=== PATIENT | female | born 1965 | race Caucasian/White ===

== ENCOUNTER 2019-02-21 07:04 | Emergency (ER) | payer MEDICARE, MEDICAID ==
[~2019-02-21] VITALS: Ht 160 cm; Wt 66.2 kg
[2019-02-21 07:24] VITALS: BP 128/73
[2019-02-21] MEDS ORDERED: ACETAMINOPHEN 325 MG TAB PO ONE (08:30)
== END 2019-02-21 08:40 | disposition home or self-care (01) ==
LOC: ER 07:04
DX: S00.83XA Contusion of other part of head, initial encounter (principal); S63.502A Unspecified sprain of left wrist, initial encounter; S00.31XA Abrasion of nose, initial encounter; F17.210 Nicotine dependence, cigarettes, uncomplicated; W01.198A Fall on same level from slipping, tripping and stumbling with subsequent striking against other object, initial encounter; Y93.89 Activity, other specified; Y92.89 Other specified places as the place of occurrence of the external cause; Y99.8 Other external cause status
CPT/HCPCS: 70450; 73110

== ENCOUNTER 2021-11-04 09:13 | Emergency (ER) | payer MEDICARE, MEDICAID ==
[~2021-11-04] VITALS: Ht 160 cm; Wt 70.3 kg
[2021-11-04 09:55] VITALS: BP 136/71
== END 2021-11-04 10:24 | disposition home or self-care (01) ==
LOC: ER 09:13
DX: M77.8 Other enthesopathies, not elsewhere classified (principal); I10 Essential (primary) hypertension; E11.9 Type 2 diabetes mellitus without complications; F17.210 Nicotine dependence, cigarettes, uncomplicated; Z90.49 Acquired absence of other specified parts of digestive tract
CPT/HCPCS: 73110

== ENCOUNTER 2025-04-24 23:15 | Inpatient (IN) | payer MEDICARE, MEDICAID ==
[~2025-04-24] VITALS: Ht 160 cm; Wt 76.8 kg
[2025-04-25] VITALS (7 sets, daily range): BP systolic 100–138; BP diastolic 51–70; PULSE 69–96; RESP 16–18; TEMP 98.1–98.3; O2SAT 91–98
--- NOTE | 2025-04-25 00:44 | DVH ---
INDICATION: right side mid back pain TECHNIQUE: 2 views of the thoracic spine were obtained. COMPARISON: None FINDINGS: Alignment is maintained. Vertebral body heights are preserved. No fractures. Relatively mild degenerative disc disease throughout the mid thoracic spine. IMPRESSION: No acute osseous abnormality.
[2025-04-25] MEDS: MORPHINE SULFATE 4 MG/ML SYR/VIAL IM ONE (02:01)
[2025-04-25] MEDS: KETOROLAC TROMETH 60MG/2ML VIAL IM ONE (02:48)
[2025-04-25 03:20] LABS: Hematocrit 40.7 % (36.0-46.0); Hemoglobin 13.8 g/dL (12.2-16.2); Mean Corpuscular Hemoglobin 31.6 pg (28.0-32.0); Mean Corpuscular Volume 93.3 fL (80.0-100.0); Nucleated Red Blood Cells % 0.0 %
[2025-04-25 03:24] LABS: Alanine Aminotransferase 31 U/L (7-40); Albumin 4.3 g/dL (3.2-4.8); Alkaline Phosphatase 114 U/L (46-116); Anion Gap 7 (5-15); BUN/Creatinine Ratio 13.7 (10.0-20.0); Blood Urea Nitrogen 13 mg/dL (9-23); Calcium 9.2 mg/dL (8.7-10.4); Carbon Dioxide 26 mmol/L (20-31); Potassium 4.4 mmol/L (3.5-5.1); Sodium 143 mmol/L (136-145); Total Protein 7.0 g/dL (5.7-8.2)
[2025-04-25 03:25] LABS: Bilirubin, Total 0.6 mg/dL (0.2-1.0)
[2025-04-25 03:27] LABS: Chloride 110 mmol/L (98-107); Glucose 171 mg/dL (74-106)
[2025-04-25] MEDS: ONDANSETRON HCL 4 MG/2 ML VIAL IV ONE ×2 (04:03→07:52)
[2025-04-25] MEDS: MORPHINE SULFATE 4 MG/ML SYR/VIAL IV ONE ×2 (04:04→07:55)
--- NOTE | 2025-04-25 04:07 | DVH ---
EXAM: CT CT AB PEL WO CON-NO ORAL OR IV History: RIGHT FLANK PAIN Comparison Study: None TECHNIQUE: Multidetector CT of the abdomen and pelvis was performed from lung bases to pubic symphysis. Imaging was performed without IV contrast. Axial, coronal and sagittal multiplanar reformats were obtained from the axial data set by the technologist. Radiation optimization: All CT scans at this facility use at least one of these dose optimization techniques: automated exposure control mA and/or kV adjustment per patient size (includes targeted exams where dose is matched to clinical indication) or iterative reconstruction. Radiation Dose Information: CT Dose: CTDI volume is 8.13 mGy. Dose-length product is 485.31 mGy*cm FINDINGS: Evaluation of solid organs is limited due to lack of intravenous contrast use. Imaged portions of the lung bases demonstrate dependent changes. Liver, spleen, pancreas and adrenal glands appear unremarkable. There has been prior cholecystectomy. Kidneys appear symmetric without hydronephrosis or calculus. Urinary bladder appears unremarkable. No evidence of bowel obstruction or focal bowel wall thickening. Appendix is normal. No free fluid, free air, or adenopathy. No suspicious osseous lesion. Lumbar fusion hardware L4 through S1. IMPRESSION: 1. No acute abdominal or pelvic finding.
--- NOTE | 2025-04-25 04:19 | ED.PDOC ---
Back pain HPI HPI Comments Pt presents with cc of mid right back/flank pain x yesterday, currently at a 10/10 and causing significant SOB. [facility] back surgery years ago. Pt was seen at [facility] yesterday, daughter reporting minimal workup with pt being sent home without any reason for the pain. Patient reports lower back lumbar fusions in the past. Denies numbness, weakness, loss of bowel or bladder control, or saddle anesthesia reports no fevers or chills nausea or vomiting. Chief Complaint: Back Pain Time Seen by MD: 23:21 Primary Care Provider: [facility] Reviewed Notes: Nurses Notes, Medications, Allergies Allergies: Coded Allergies: Acetaminophen (Verified Allergy, Unknown, 04/24/25) Hydrocodone (Verified Allergy, Unknown, 04/24/25) Information Source: Patient Mode of Arrival: Ambulatory Past Medical History PAST MEDICAL HISTORY: DM, HTN Surgical History: Cholecystectomy, [employer] History: Denies all [employer] Hx Family History Family History: Reviewed,noncontributory to illness Social History Smoker: Cigarettes Alcohol: Denies ETOH Use Drugs: Denies Drug Use Lives In: Home All Other Systems: Reviewed and Negative (See HPI) Physical Exam General Appearance: No Apparent Distress, Normal HEENT: Pharynx Normal Neck: Full Range of Motion, Non-Tender Respiratory: Lungs Clear, No Respiratory Distress, Normal Breath Sounds Cardiovascular: No Edema, No JVD, No Murmur, No Gallop, Normal Peripheral Pulses, Regular Rate/Rhythm Breast Exam: Deferred Gastrointestinal: No Organomegaly, Non Tender, No Pulsatile Mass, Normal Bowel Sounds, Soft Genitalia: Deferred Pelvic: Deferred Rectal: Deferred Extremities: No calf tenderness, Normal capillary refill, Normal inspection, Normal range of motion, Non-tender, No pedal edema Musculoskeletal : Location: Right Extremity Location: Back (Moderate tenderness palpated over T7 through T12. No noted crepitus or step-offs along cervical thoracic and lumbar spine. Strength sensory and motion intact. Negative straight leg raise bilateral. Positive pedal pulses) Apperance: Normal Neurologic: Alert, No Motor Deficits, Normal Affect, Normal Mood, No Sensory Deficits Cerebellar Function: Normal Reflexes: Normal Skin: Dry, Normal Color, Warm Lymphatic: No Adenopathy Was a procedure done? Was a procedure done?: No Back Pain Differential Dx Differential Diagnosis: Fracture, Musculoskeletal Pain, Strain X-Ray, Labs, Meds, VS Vital Signs Date Time Temp Pulse Resp B/P (MAP) Pulse Ox O2 Delivery O2 Flow Rate FiO2 04/25/25 04:04 84 12 140/69 04/25/25 04:03 80 16 140/69 (92) 94 04/25/25 02:29 77 20 112/68 04/25/25 02:01 80 20 120/69 04/25/25 02:01 80 20 97 Room Air 04/25/25 02:01 98.5 80 20 120/69 (86) 97 98.5 04/24/25 23:16 98.0 95 20 95 98.0 Lab Test 04/25/25 04:27 04/25/25 03:02 Range/Units Urine Color Pending Urine Clarity Pending Urine pH Pending Urine Specific Joffre Pending Urine Protein Pending Urine Ketones Pending Urine Blood Pending Urine Nitrite Pending Urine Bilirubin Pending Urine Urobilinogen Pending Urine Leukocyte Esterase Pending Urine RBC Pending Urine Microscopic WBC Pending Urine Squamous Epithelial Cells Pending Urine Bacteria Pending Urine Glucose Pending White Blood Count 12.7 H 4.4-10.8 10^3/uL Red Blood Count 4.36 4.0-5.20 10^6/uL Hemoglobin 13.8 12.2-16.2 g/dL Hematocrit 40.7 36.0-46.0 % Mean Corpuscular Volume 93.3 80.0-100.0 fL Mean Corpuscular Hemoglobin 31.6 28.0-32.0 pg Mean Corpuscular Hemoglobin Concent 33.9 32.0-36.0 g/dL Red Cell Distribution Width 13.7 11.8-14.3 % Platelet Count 287 140-450 10^3/uL Mean Platelet Volume 7.6 6.9-10.8 fL Neutrophils (%) (Auto) 66.3 37.0-80.0 % Lymphocytes (%) (Auto) 23.3 10.0-50.0 % Monocytes (%) (Auto) 8.4 0.0-12.0 % Eosinophils (%) (Auto) 1.2 0.0-7.0 % Basophils (%) (Auto) 0.8 0.0-2.0 % Neutrophils # (Auto) 8.4 1.6-8.6 10 ^3/uL Lymphocytes # (Auto) 3.0 0.4-5.4 10 ^3/uL Monocytes # (Auto) 1.1 0-1.3 10 ^3/uL Eosinophils # (Auto) 0.2 0-0.8 10 ^3/uL Basophils # (Auto) 0.1 0-0.2 10 ^3/uL Nucleated Red Blood Cells 0.0 % Sodium Level 143 136-145 mmol/L Potassium Level 4.4 3.5-5.1 mmol/L Chloride Level 110 H 98-107 mmol/L Carbon Dioxide Level 26 20-31 mmol/L Anion Gap 7 5-15 Blood Urea Nitrogen 13 9-23 mg/dL Creatinine 0.95 0.550-1.02 mg/dL Glomerular Filtration Rate Calc 68 >90 mL/min BUN/Creatinine Ratio 13.7 10.0-20.0 Serum Glucose 171 H 74-106 mg/dL Calcium Level 9.2 8.7-10.4 mg/dL Total Bilirubin 0.6 0.2-1.0 mg/dL Aspartate Amino Transferase (AST) 29 13-40 U/L Alanine Aminotransferase (ALT) 31 7-40 U/L Alkaline Phosphatase 114 46-116 U/L Total Protein 7.0 5.7-8.2 g/dL Albumin 4.3 3.2-4.8 g/dL Current Medications Medications (Trade) Dose Ordered Sig/Fatimah Route Start Time Stop Time Status Last Admin Morphine Sulfate 2 mg ONCE ONCE IM 04/25/25 02:00 04/25/25 02:01 DC 04/25/25 02:01 Dexamethasone Sodium Phosphate (Decadron Injection) 10 mg ONCE ONCE IM 04/25/25 02:00 04/25/25 02:01 DC 04/25/25 02:01 Ketorolac Tromethamine (Toradol Injection) 60 mg ONCE ONCE IM 04/25/25 02:45 04/25/25 02:46 DC 04/25/25 02:48 Morphine Sulfate 4 mg ONCE ONCE IV 04/25/25 03:45 04/25/25 03:46 DC 04/25/25 04:04 Ondansetron HCl (Zofran) 4 mg ONCE ONCE IV 04/25/25 03:45 04/25/25 03:46 DC 04/25/25 04:03 X-Ray, Labs, Meds, VS Comment Patient presented with mid back/flank pain that was concerning for possible calculi, compression fracture, or orther possible surgical emergency. I ordered and reviewed the result of at least 3 labs including a CBC, CMP, and Urinalysis. I ordered a thoracic spine x-ray shows no acute fractures subluxations or osseous lesions. CT abdomen and pelvis was obtained to rule out any abdominal pathology or acute renal stone or obstruction results show no acute findings .Risk:This patient has a high risk of morbidity due to further diagnostic testing or treatment and may suffer from an acute abdominal or spinal process disorder. Workup reveals intractable thoracic back pain and patient should be admitted for further workup. and possible expert consultation consider MRI thoracic spine Images Reviewed?: Images reviewed and evaluated by me Time of 1ST Reevaluation: 23:21 Reevaluation 1ST: Unchanged Time of 2ND Reevaluation: 02:30 Reevaluation 2ND: Unchanged Time of 3RD Reevaluation: 04:18 Reevaluation 3RD: Unchanged Patient Education/Counseling: Diagnosis, Treatment Family Education/Counseling: No Family Present SEPSIS Sepsis Screen Date sepsis recognized/suspect: Apr 24, 2025 Time Sepsis recognized/suspect: 2318 Recent Procedure: No On Antibiotic Therapy: No Respiratory Rate >20: No Heart Rate >90: Yes Temp<36 C (96.8 F) or >38.3 C: No SBP <90 or MAP <65 mmHG: No New Acute Mental Status Change: No Is the patient on CPAP, BIPAP,: No Physician Orders Spine Thoracic 2view (04/24/25 23:59) Ct Ab Pel Wo Con-No Oral Or Iv (04/25/25 02:53) Urinalysis (04/25/25 02:53) Sodium Chloride 0.9% (04/25/25 04:15) Vital Signs Date Time Temp Pulse Resp B/P (MAP) Pulse Ox O2 Delivery O2 Flow Rate FiO2 04/25/25 04:04 84 12 140/69 04/25/25 04:03 80 16 140/69 (92) 94 04/25/25 02:29 77 20 112/68 04/25/25 02:01 80 20 120/69 04/25/25 02:01 80 20 97 Room Air 04/25/25 02:01 98.5 80 20 120/69 (86) 97 98.5 04/24/25 23:16 98.0 95 20 95 98.0 Laboratory Tests Test 04/25/25 03:02 White Blood Count 12.7 10^3/uL (4.4-10.8) H Medications Medications Dose Ordered Sig/Fatimah Route Start Time Stop Time Status Last Admin Dose Admin Dexamethasone Sodium Phosphate 10 mg ONCE ONCE IM 04/25/25 02:00 04/25/25 02:01 DC 04/25/25 02:01 Ketorolac Tromethamine 60 mg ONCE ONCE IM 04/25/25 02:45 04/25/25 02:46 DC 04/25/25 02:48 Morphine Sulfate 2 mg ONCE ONCE IM 04/25/25 02:00 04/25/25 02:01 DC 04/25/25 02:01 Morphine Sulfate 4 mg ONCE ONCE IV 04/25/25 03:45 04/25/25 03:46 DC 04/25/25 04:04 Ondansetron HCl 4 mg ONCE ONCE IV 04/25/25 03:45 04/25/25 03:46 DC 04/25/25 04:03 Departure 1 Departure Time of Disposition: 04:17 Impression: Primary Impression: Intractable back pain Disposition: 09 ADMITTED INPATIENT Condition: Stable Discharged With: Self Critical Care Note Critical Care Time?: No Stability Stability form required: LOLLY Villagomez Apr 25, 2025 04:19
[2025-04-25 04:50] LABS: Urine Protein, UAD TRACE (Negative)
[2025-04-25] MEDS: SODIUM CHLORIDE 0.9% 1,000 ML IV ONE (05:47)
[2025-04-25] MEDS ORDERED: DOCUSATE SOD 100 MG CAP PO PRN (07:45)
[2025-04-25] MEDS ORDERED: DEXTROSE (50%) 50ML SYRG IV PRN (07:45)
[2025-04-25] MEDS ORDERED: ONDANSETRON HCL 4 MG/2 ML VIAL IV PRN (07:45)
--- NOTE | 2025-04-25 08:52 | DVHHP2 ---
History of Present Illness Reason for Visit: Intractable back pain History of Present Illness The patient is a 60-year-old female with past medical history of thyroid disease, hyperlipidemia, depression, hypertension, and diabetes mellitus who presented to [facility] ED with complaint of intractable back pain. Patient reports that she has been experiencing diffuse back pain rating 10/10 numeric scale, radiating to her flank, associated with shortness of breaths, getting worse that prompted this visit. Patient was seen at [place] yesterday, daughter reporting minimal workup with patient and discharged home without any reason for the pain. Patient was seen and evaluated in the ED, laboratory data shows WBC 12.7, platelets 287, sodium 143, potassium 4.4, BUN 13, creatinine 0.95, GFR 68, glucose 171, calcium 9.2, blood pressure 140/69, heart rate 84, temperature 98.5 F, O2 saturation 97% on room. Urinalysis positive for urinary tract infection. Thoracic spine x-ray show no acute osseous abnormality. Patient was started on IV antibiotic regimen Rocephin, please see medication orders section in the computer. On my assessment, patient denied chest pain, no headache, dizziness, diaphoresis, shortness of breaths, no abdominal pain, diarrhea, nausea, vomiting, fever, no chills. Patient was admitted for further evaluation and medical management. Past Medical History DM, HTN, Thyroid disease, HLD, Depression Past Surgical History Back surgery, Cholecystectomy, Family History Reviewed, noncontributory to the management of this case. Past Social History The patient lives at home, smokes cigarettes, denies alcohol or illicit drugs abuse. Review of Systems Constitutional: Yes: Weakness; No: Fever, Chills, Sweats, Malaise, Other Eyes: No: Pain, Vision change, Conjunctivae inflammation, Eyelid inflammation, Other, Redness ENT: No: Ear pain, Ear discharge, Nose pain, Nose discharge, Nose congestion, Mouth pain, Mouth swelling, Throat pain, Throat swelling, Other Respiratory: No: Cough, Dry, Shortness of breath, SOB with excertion, Wheezing, Hemoptysis, Pleuritic Pain, Sputum, Wheezing, Other Cardiovascular: No: Chest Pain, Palpitations, Orthopnea, Paroxysmal Noc. Dyspnea, Edema, Lt Headedness, Other Gastrointestinal: No: Nausea, Vomiting, Abdominal Pain, Diarrhea, Constipation, Melena, Hematochezia, Other Genitourinary: No Dysuria, No Frequency, No Incontinence, No Hematuria, No Retention; Other (Flank pain) Musculoskeletal: back pain; No: other, neck pain, shoulder pain, arm pain, hand pain, leg pain, foot pain Skin: No: Rash, Lesions, Jaundice, Bruising, Other Neurological: No: Weakness, Numbness, Incoordination, Change in speech, Confusion, Seizures, Other Allergies: Coded Allergies: Acetaminophen (Verified Allergy, Unknown, 04/24/25) Hydrocodone (Verified Allergy, Unknown, 04/24/25) Medications Current Medications Medications Dose Ordered Sig/Fatimah Route Start Time Stop Time Status Last Admin Dose Admin Famotidine 20 mg DAILY PO 04/25/25 10:00 Divalproex Sodium 500 mg BID PO 04/25/25 10:00 Levothyroxine Sodium 50 mcg QAM@0600 PO 04/26/25 06:00 Lisinopril 10 mg DAILY PO 04/25/25 10:00 Clonidine HCl 0.1 mg Q4HP PRN PO 04/25/25 07:45 Ibuprofen 600 mg Q6HP PRN PO 04/25/25 07:45 Ceftriaxone Sodium 50 ml @ 100 mls/hr DAILY@09 IV 04/25/25 09:00 Diagnostic Test (Pha) 1 strip ACHS 04/25/25 11:30 Insulin Human Regular HS SC 04/25/25 22:00 Insulin Human Regular AC SC 04/25/25 11:30 Dextrose 50 ml UD PRN IV 04/25/25 07:45 Sodium Chloride 10 ml Q8HR IV 04/25/25 14:00 Ondansetron HCl 4 mg Q4HP PRN IV 04/25/25 07:45 Docusate Sodium 100 mg BIDPRN PRN PO 04/25/25 07:45 Morphine Sulfate 2 mg Q4HPRN PRN IV 04/25/25 08:00 Duloxetine HCl 60 mg DAILY PO 04/25/25 10:00 Exam Vital Signs Vital Signs Date Time Temp Pulse Resp B/P (MAP) Pulse Ox O2 Delivery O2 Flow Rate FiO2 04/25/25 08:04 96 18 98 Room Air* 0 21 04/25/25 07:55 151/88 04/25/25 07:28 98.6 98.6 General Appearance: Alert, Oriented X3, Cooperative, No acute distress HEENT: Atraumatic, PERRLA, EOMI, Mucous membr. moist/pink Respiratory: Normal air movement Cardiovascular: Regular rate, Normal S1, Normal S2, No murmurs Abdominal: Normal bowel sounds, Soft, No tenderness, No hepatospenomegaly, No masses Extremities: No clubbing, No cyanosis, No edema, Normal pulses, No tenderness/swelling, Other (Back pain) Skin: No rashes, No breakdown, No significant lesion Neuro: Normal speech, Normal tone, Sensation intact, Cranial nerves 3-12 NL, Reflexes 2+, Other (Generalized weakness) Psych/Mental Status: Mental status NL, Mood NL Labs/Xrays Labs Test 04/25/25 04:27 04/25/25 03:02 Range/Units Urine Color Yellow Yellow Urine Clarity Clear Clear Urine pH 6.5 5.0-9.0 Urine Specific [place] 1.025 1.001-1.035 Urine Protein Trace H Negative Urine Ketones Negative Negative Urine Blood Negative Negative /uL Urine Nitrite Negative Negative Urine Bilirubin Negative Negative Urine Urobilinogen Normal Negative mg/dL Urine Leukocyte Esterase 2+ Negative /uL Urine RBC 2 0 - 4 /hpf Urine Microscopic WBC 43 H 0-5 /HPF Urine Squamous Epithelial Cells Few <5 /hpf Urine Bacteria None seen None Seen /hpf Urine Mucus Few None Seen Urine Glucose 4+ H Normal mg/dL White Blood Count 12.7 H 4.4-10.8 10^3/uL Red Blood Count 4.36 4.0-5.20 10^6/uL Hemoglobin 13.8 12.2-16.2 g/dL Hematocrit 40.7 36.0-46.0 % Mean Corpuscular Volume 93.3 80.0-100.0 fL Mean Corpuscular Hemoglobin 31.6 28.0-32.0 pg Mean Corpuscular Hemoglobin Concent 33.9 32.0-36.0 g/dL Red Cell Distribution Width 13.7 11.8-14.3 % Platelet Count 287 140-450 10^3/uL Mean Platelet Volume 7.6 6.9-10.8 fL Neutrophils (%) (Auto) 66.3 37.0-80.0 % Lymphocytes (%) (Auto) 23.3 10.0-50.0 % Monocytes (%) (Auto) 8.4 0.0-12.0 % Eosinophils (%) (Auto) 1.2 0.0-7.0 % Basophils (%) (Auto) 0.8 0.0-2.0 % Neutrophils # (Auto) 8.4 1.6-8.6 10 ^3/uL Lymphocytes # (Auto) 3.0 0.4-5.4 10 ^3/uL Monocytes # (Auto) 1.1 0-1.3 10 ^3/uL Eosinophils # (Auto) 0.2 0-0.8 10 ^3/uL Basophils # (Auto) 0.1 0-0.2 10 ^3/uL Nucleated Red Blood Cells 0.0 % Sodium Level 143 136-145 mmol/L Potassium Level 4.4 3.5-5.1 mmol/L Chloride Level 110 H 98-107 mmol/L Carbon Dioxide Level 26 20-31 mmol/L Anion Gap 7 5-15 Blood Urea Nitrogen 13 9-23 mg/dL Creatinine 0.95 0.550-1.02 mg/dL Glomerular Filtration Rate Calc 68 >90 mL/min BUN/Creatinine Ratio 13.7 10.0-20.0 Serum Glucose 171 H 74-106 mg/dL Calcium Level 9.2 8.7-10.4 mg/dL Total Bilirubin 0.6 0.2-1.0 mg/dL Aspartate Amino Transferase (AST) 29 13-40 U/L Alanine Aminotransferase (ALT) 31 7-40 U/L Alkaline Phosphatase 114 46-116 U/L Total Protein 7.0 5.7-8.2 g/dL Albumin 4.3 3.2-4.8 g/dL PATIENT: SULTANA BOOKERTENAT: [id number] UNIT: [id number] : 1965 LOC: ER ROOM / BED: / AGE / SEX: 60 / F ADM STATUS: REG ER SERVICE [id number] ORDERING PHYSICIAN: LOLLY SCHMIDT PROCEDURE(s): ABPL - CT AB PEL WO CON-NO ORAL OR IV REASON: RIGHT FLANK PAIN ORDER NUMBER(s): [id number], ACCESSION NUMBER(s): [id number] EXAM: CT CT AB PEL WO CON-NO ORAL OR IV History: RIGHT FLANK PAIN Comparison Study: None TECHNIQUE: Multidetector CT of the abdomen and pelvis was performed from lung bases to pubic symphysis. Imaging was performed without IV contrast. Axial, coronal and sagittal multiplanar reformats were obtained from the axial data set by the technologist. Radiation optimization: All CT scans at this facility use at least one of these dose optimization techniques: automated exposure control mA and/or kV adjustment per patient size (includes targeted exams where dose is matched to clinical indication) or iterative reconstruction. Radiation Dose Information: CT Dose: CTDI volume is 8.13 mGy. Dose-length product is 485.31 mGy*cm FINDINGS: Evaluation of solid organs is limited due to lack of intravenous contrast use. Imaged portions of the lung bases demonstrate dependent changes. Liver, spleen, pancreas and adrenal glands appear unremarkable. There has been prior cholecystectomy. Kidneys appear symmetric without hydronephrosis or calculus. Urinary bladder appears unremarkable. No evidence of bowel obstruction or focal bowel wall thickening. Appendix is normal. No free fluid, free air, or adenopathy. No suspicious osseous lesion. Lumbar fusion hardware L4 through S1. IMPRESSION: 1. No acute abdominal or pelvic finding. ORDERING PHYSICIAN: LOLLY SCHMIDT SALES CORRESPONDENCE CLERK PROCEDURE(s): THOSP - SPINE THORACIC 2VIEW REASON: right side mid back pain ORDER NUMBER(s): [id number], ACCESSION NUMBER(s): [id number] INDICATION: right side mid back pain TECHNIQUE: 2 views of the thoracic spine were obtained. COMPARISON: None FINDINGS: Alignment is maintained. Vertebral body heights are preserved. No fractures. Relatively mild degenerative disc disease throughout the mid thoracic spine. IMPRESSION: No acute osseous abnormality. SEPSIS Sepsis Screen Date sepsis recognized/suspect: Apr 25, 2025 Time Sepsis recognized/suspect: 08 Recent Procedure: No On Antibiotic Therapy: Yes Respiratory Rate >20: No Heart Rate >90: No Temp<36 C (96.8 F) or >38.3 C: No SBP <90 or MAP <65 mmHG: No New Acute Mental Status Change: No Is the patient on CPAP, BIPAP,: No Physician Orders Ct Ab Pel Wo Con-No Oral Or Iv (04/25/25 02:53) Famotidine Tablet (Pepcid Tablet) (04/25/25 10:00) Divalproex Dr Tablet (Depakote "Dr" Tabl (04/25/25 10:00) Levothyroxine Tablet (Synthroid Tablet) (04/26/25 06:00) Lisinopril Tablet (Zestril Tablet) (04/25/25 10:00) Clonidine Hcl Tablet (Catapres Tablet) (04/25/25 07:45) Ibuprofen Tablet (Motrin Tablet) (04/25/25 07:45) Ceftriaxone 1gm/50ml (Rocephin) (04/25/25 09:00) Urine Bacterial Culture (04/25/25 07:32) Glucose Blood (Accu-Chek Comfort Curve T (04/25/25 11:30) Insulin R (Human) (Insulin R) (04/25/25 22:00) Insulin R (Human) (Insulin R) (04/25/25 11:30) Dextrose 50% Syringe (04/25/25 07:45) Allergies (04/25/25 07:32) Code Status (04/25/25 07:32) Sodium Chloride Lock (Saline Lock Ns) (04/25/25 14:00) Oxygen Per Hour (04/25/25 07:32) Ondansetron Hcl (Zofran) (04/25/25 07:45) Docusate Sodium Capsule (Colace Capsule) (04/25/25 07:45) Complete Blood Count (04/26/25 04:00) Comprehensive Metabolic Panel (04/26/25 04:00) Condition: Serious (04/25/25 07:32) Bedrest With Bathroom Privileg (04/25/25 07:32) Sequential Compression Device (04/25/25 ) Consistent Carb(Ccho)Diabetes (04/25/25 Breakfast) Duloxetine Hcl Capsule (Cymbalta Capsule (04/25/25 10:00) Morphine Sulfate Injection (04/25/25 08:00) Ketorolac Injection (Toradol Injection) (04/25/25 10:00) Admit (04/25/25 08:51) Nitroglycerin Sublingual (Ntrostat Subli (04/25/25 09:00) Stat Ekg For Chest Pain (04/25/25 08:51) Notify Of Changes From Base (04/25/25 08:51) Emergency Dysrhythmia Protocol (04/25/25 08:51) Oxygen By Nasal Cannula (04/25/25 08:51) Vital Signs Date Time Temp Pulse Resp B/P (MAP) Pulse Ox O2 Delivery O2 Flow Rate FiO2 04/25/25 08:04 96 18 98 Room Air* 0 21 04/25/25 07:55 96 18 151/88 04/25/25 07:28 98.6 96 18 151/88 (109) 97 98.6 04/25/25 04:04 84 12 140/69 04/25/25 04:03 80 16 140/69 (92) 94 04/25/25 02:29 77 20 112/68 04/25/25 02:01 80 20 120/69 04/25/25 02:01 80 20 97 Room Air 04/25/25 02:01 98.5 80 20 120/69 (86) 97 98.5 Laboratory Tests Test 04/25/25 03:02 White Blood Count 12.7 10^3/uL (4.4-10.8) H Medications Medications Dose Ordered Sig/Fatimah Route Start Time Stop Time Status Last Admin Dose Admin Ceftriaxone Sodium 50 ml @ 100 mls/hr ONCE ONCE IV 04/25/25 05:45 04/25/25 06:14 DC 04/25/25 06:22 100 MLS/HR Dexamethasone Sodium Phosphate 10 mg ONCE ONCE IM 04/25/25 02:00 04/25/25 02:01 DC 04/25/25 02:01 10 MG Ketorolac Tromethamine 60 mg ONCE ONCE IM 04/25/25 02:45 04/25/25 02:46 DC 04/25/25 02:48 60 MG Morphine Sulfate 2 mg ONCE ONCE IM 04/25/25 02:00 04/25/25 02:01 DC 04/25/25 02:01 2 MG Morphine Sulfate 4 mg ONCE ONCE IV 04/25/25 03:45 04/25/25 03:46 DC 04/25/25 04:04 4 MG Morphine Sulfate 4 mg ONCE ONCE IV 04/25/25 07:30 04/25/25 07:31 DC 04/25/25 07:55 4 MG Ondansetron HCl 4 mg ONCE ONCE IV 04/25/25 03:45 04/25/25 03:46 DC 04/25/25 04:03 4 MG Ondansetron HCl 4 mg ONCE ONCE IV 04/25/25 07:30 04/25/25 07:31 DC 04/25/25 07:52 4 MG Sodium Chloride 1,000 ml @ 1,000 mls/hr Q1H ONCE IV 04/25/25 04:15 04/25/25 05:14 DC 04/25/25 05:47 1,000 MLS/HR Assessment/Plan Assessment/Plan Intractable back pain Urinary tract infection Leukocytosis, unspecified Diabetes mellitus with hyperglycemia Plan 1. Admit to med surge unit 2. Breathing treatment 3. Pain control management 4. IV antibiotic management 5. Management of fluids and electrolytes 6. Consultation for hospitalist 7. Diagnostic test thoracic spine x-ray 8. DVT prophylaxis-on SCDs 9. Repeat labs CBC, CMP in a.m. 10. Home medication reviewed and reconciled 11. Continue with current medical management 12. Treatment plan discussed with patient and RN. Patient verbalized understanding. Plan discussed with: Patient, Other (RN) My Orders Orders - KRYSTLE ROSE DNP Procedure Category Date Status Time Famotidine Tablet PHA 04/25/25 In Process (Pepcid Tablet) 10:[address] Tablet PHA 04/25/25 In Process (Depakote "Dr" Tabl 10:00 Levothyroxine Tablet PHA 04/26/25 In Process (Synthroid Tablet) 06:00 Lisinopril Tablet PHA 04/25/25 In Process (Zestril Tablet) 10:00 Clonidine Hcl Tablet PHA 04/25/25 In Process (Catapres Tablet) 07:45 Ibuprofen Tablet PHA 04/25/25 In Process (Motrin Tablet) 07:45 Ceftriaxone 1gm/50ml PHA 04/25/25 In Process (Rocephin) 09:00 Urine Bacterial RYAN 04/25/25 In Process Culture 07:32 Glucose Blood PHA 04/25/25 In Process (Accu-Chek Comfort 11:30 Insulin R (Human) PHA 04/25/25 In Process (Insulin R) 22:00 Insulin R (Human) PHA 04/25/25 In Process (Insulin R) 11:30 Dextrose 50% Syringe PHA 04/25/25 In Process 07:45 Allergies PIPO 04/25/25 In Process 07:32 Code Status CODE 04/25/25 Transmitted 07:32 Sodium Chloride Lock PHA 04/25/25 In Process (Saline Lock Ns) 14:00 Oxygen Per Hour RT 04/25/25 Transmitted 07:32 Ondansetron Hcl PHA 04/25/25 In Process (Zofran) 07:45 Docusate Sodium PHA 04/25/25 In Process Capsule (Colace 07:45 Complete Blood Count LAB 04/26/25 Verified 04:00 Comprehensive LAB 04/26/25 Verified Metabolic Panel 04:00 Condition: Serious PIPO 04/25/25 In Process 07:32 Bedrest With Bathroom PIPO 04/25/25 In Process Privileg 07:32 Sequential PIPO 04/25/25 In Process Compression Device Consistent DIET 04/25/25 Transmitted Carb(Ccho)Diabetes Breakfast Duloxetine Hcl PHA 04/25/25 In Process Capsule (Cymbalta 10:00 Morphine Sulfate PHA 04/25/25 In Process Injection 08:00 Ketorolac Injection PHA 04/25/25 Logged (Toradol Injection) 10:00 Admit ADMIT 04/25/25 Transmitted 08:51 Nitroglycerin [facility] 04/25/25 Transmitted Sublingual (Ntrostat 09:00 Stat Ekg For Chest [facility] 04/25/25 Transmitted Pain 08:51 Notify Md Of Changes [facility] 04/25/25 Transmitted From Base 08:51 Emergency Dysrhythmia [facility] 04/25/25 Transmitted Protocol 08:51 Oxygen By Nasal RT 04/25/25 Transmitted Cannula 08:51 Problem List: (1) Intractable back pain (2) Urinary tract infection (3) Leukocytosis, unspecified (4) Diabetes mellitus with hyperglycemia Date of Service: Apr 25, 2025 Billing Provider: KRSYTLE ROSE DNP Common Visit Codes: [id number] INP/OBS CARE (HIGH) KRYSTLE ROSE DNP Apr 25, 2025 08:52
[2025-04-25] MEDS ORDERED: NITROGLYCERIN 0.4 MG SL TAB SL PRN (09:00)
[2025-04-25] MEDS: LISINOPRIL 5 MG TAB PO SCH (09:16)
[2025-04-25] MEDS: FAMOTIDINE 20 MG TAB PO SCH (09:16)
[2025-04-25] MEDS: KETOROLAC TROMETH 30 MG/ML 1ML VIAL IV ONE (09:16)
[2025-04-25] MEDS: MORPHINE SULFATE 4 MG/ML SYR/VIAL IV PRN (12:16)
[2025-04-25] MEDS: ACCU-CHEK COMFORT CURVE STRIP VI SCH (12:30)
[2025-04-25] MEDS: InsuLIN REG 1unit/0.01ml Soln (100units/ml) SC SCH ×2 (12:33→22:37)
[2025-04-25] MEDS: SODIUM CHLOR 0.9% PF (SALINE LOCK) 10ML VIAL/SYR IV SCH (14:00)
--- NOTE | 2025-04-25 18:27 | DVH ---
EXAM: CT HEAD WITHOUT CONTRAST INDICATION: s/p fall TECHNIQUE:: CT images of the head were obtained without administration of IV contrast. CT scans at this facility use dose modulation, iterative reconstruction, and/or weight based dosing when appropriate to reduce radiation dose to as low as reasonably achievable. COMPARISON: None FINDINGS: PARENCHYMA: No acute hemorrhage. There is no mass effect, midline shift, or herniation. There is preservation of the holloway white differentiation. Mild scattered hypoattenuation along the periventricular, centrum semiovale, and deep white matter tracts, which are nonspecific however statistically most likely represent chronic microvascular ischemic change. VENTRICLES: No hydrocephalus. EXTRA-AXIAL SPACES: No extra-axial fluid collections. OTHER: The bony structures are intact. Visualized portions of the paranasal sinuses and mastoid air cells are clear. IMPRESSION: 1. No CT evidence of an acute intracranial abnormality.
[2025-04-26 05:00] VITALS: BP 127/79; PULSE 67; RESP 18; O2SAT 97
[2025-04-26] MEDS: LEVOTHYROXINE SODIUM 50 MCG TAB PO SCH (06:18)
[2025-04-26] MEDS: IBUPROFEN 600 MG TAB PO PRN (06:19)
[2025-04-26 07:59] LABS: Hematocrit 35.2 % (36.0-46.0); Hemoglobin 11.7 g/dL (12.2-16.2); Mean Corpuscular Hemoglobin 31.2 pg (28.0-32.0); Mean Corpuscular Volume 93.5 fL (80.0-100.0); Nucleated Red Blood Cells % 0.2 %
[2025-04-26 08:17] LABS: Albumin 3.9 g/dL (3.2-4.8); Alkaline Phosphatase 107 U/L (46-116); Anion Gap 7 (5-15); BUN/Creatinine Ratio 20.2 (10.0-20.0); Bilirubin, Total 0.4 mg/dL (0.2-1.0); Blood Urea Nitrogen 22 mg/dL (9-23); Calcium 9.0 mg/dL (8.7-10.4); Carbon Dioxide 28 mmol/L (20-31); Potassium 4.5 mmol/L (3.5-5.1); Sodium 145 mmol/L (136-145); Total Protein 6.1 g/dL (5.7-8.2)
[2025-04-26 08:18] LABS: Alanine Aminotransferase 61 U/L (7-40); Chloride 110 mmol/L (98-107); Glucose 137 mg/dL (74-106)
[2025-04-26 09:00] VITALS: BP 131/48; PULSE 70; RESP 18; TEMP 97.9; O2SAT 100
--- NOTE | 2025-04-26 12:30 | DVHPN2 ---
Reviewed: Care Plan, H&P, Labs, Medications, Previous Orders, Radiology Changes from previous H/P or p: No Changes Eyes: No Pain, No Vision change, No Conjunctivae inflammation, No Eyelid inflammation, No Other, No Redness ENT: No Ear pain, No Ear discharge, No Nose pain, No Nose discharge, No Nose congestion, No Mouth pain, No Mouth swelling, No Throat pain, No Throat swelling, No Other Cardiovascular: No Chest Pain, No Palpitations, No Orthopnea, No Paroxysmal Noc. Dyspnea, No Edema, No Lt Headedness, No Other Respiratory: No Cough, No Dry, No Shortness of breath, No SOB with excertion, No Wheezing, No Hemoptysis, No Pleuritic Pain, No Sputum, No Other Gastrointestinal: No Nausea, No Vomiting, No Abdominal Pain, No Diarrhea, No Constipation, No Melena, No Hematochezia, No Other Genitourinary: No Dysuria, No Frequency, No Incontinence, No Hematuria, No Retention; Other (Flank pain) Musculoskeletal: No other, No neck pain, No shoulder pain, No arm pain; back pain; No hand pain, No leg pain, No foot pain Skin: No Rash, No Lesions, No Jaundice, No Bruising, No Other Objective Vitals Vital Signs Date Time Temp Pulse Resp B/P (MAP) Pulse Ox O2 Delivery O2 Flow Rate FiO2 04/26/25 12:00 67 20 146/82 04/26/25 09:00 97.9 100 97.9 04/25/25 20:00 Nasal Cannula* 2 28 Intake/Output Intake and Output 04/26/25 07:00 Intake Total 890 ml Balance 890 ml Intake Oral 840 ml IV Total 50 ml # Voids 2 Medications Current Medications Medications Dose Ordered Sig/Fatimah Route Start Time Stop Time Status Last Admin Dose Admin Famotidine 20 mg DAILY PO 04/25/25 10:00 04/26/25 09:37 20 MG Divalproex Sodium 500 mg BID PO 04/25/25 10:00 04/26/25 09:36 500 MG Levothyroxine Sodium 50 mcg QAM@0600 PO 04/26/25 06:00 04/26/25 06:18 50 MCG Lisinopril 10 mg DAILY PO 04/25/25 10:00 04/26/25 09:40 10 MG Clonidine HCl 0.1 mg Q4HP PRN PO 12/20/25 07:45 04/25/25 09:15 0.1 MG Ibuprofen 600 mg Q6HP PRN PO 04/25/25 07:45 04/26/25 06:19 600 MG Ceftriaxone Sodium 50 ml @ 100 mls/hr DAILY@09 IV 04/25/25 09:00 04/26/25 09:39 100 MLS/HR Diagnostic Test (Pha) 1 strip ACHS 04/25/25 11:30 04/26/25 11:26 1 STRIP Insulin Human Regular HS SC 04/25/25 22:00 04/25/25 22:37 3 UNITS Insulin Human Regular AC SC 04/25/25 11:30 04/25/25 18:12 3 UNITS Dextrose 50 ml UD PRN IV 04/25/25 07:45 Sodium Chloride 10 ml Q8HR IV 04/25/25 14:00 04/26/25 06:18 10 ML Ondansetron HCl 4 mg Q4HP PRN IV 04/25/25 07:45 Docusate Sodium 100 mg BIDPRN PRN PO 04/25/25 07:45 Morphine Sulfate 2 mg Q4HPRN PRN IV 04/25/25 08:00 04/26/25 11:30 2 MG Duloxetine HCl 60 mg DAILY PO 04/25/25 10:00 04/26/25 09:37 60 MG Nitroglycerin 0.4 mg Q5MINP PRN SL 04/25/25 09:00 Laboratory Results Laboratory Tests 04/26/25 07:49 Chemistry Test 04/26/25 07:49 Albumin 3.9 g/dL (3.2-4.8) Calcium Level 9.0 mg/dL (8.7-10.4) Total Protein 6.1 g/dL (5.7-8.2) LFT Test 04/26/25 07:49 Alanine Aminotransferase (ALT) 61 U/L (7-40) H Alkaline Phosphatase 107 U/L (46-116) Aspartate Amino Transferase (AST) 60 U/L (13-40) H Total Bilirubin 0.4 mg/dL (0.2-1.0) Urinalysis Test 04/25/25 04:27 Urine Color Yellow (Yellow) Urine Clarity Clear (Clear) Urine pH 6.5 (5.0-9.0) Urine Specific [place] 1.025 (1.001-1.035) Urine Protein Trace (Negative) H Urine Ketones Negative (Negative) Urine Blood Negative /uL (Negative) Urine Nitrite Negative (Negative) Urine Bilirubin Negative (Negative) Urine Urobilinogen Normal mg/dL (Negative) Urine Leukocyte Esterase 2+ /uL (Negative) Urine RBC 2 /hpf (0 - 4) Urine Microscopic WBC 43 /HPF (0-5) H Urine Squamous Epithelial Cells Few /hpf (<5) Urine Bacteria None seen /hpf (None Seen) Urine Mucus Few (None Seen) Urine Glucose 4+ mg/dL (Normal) H Microbiology Microbiology Date/Time Source Procedure Growth Status 04/25/25 04:27 Voided Urine Urine Culture - Preliminary Resulted Labs and/or images reviewed: Labs reviewed by me, Image(s) reviewed by me Assessment/Plan Assessment/Plan Sepsis secondary to urinary tract infection: Blood cultures urine cultures Rocephin Acute pyelonephritis Severe back pain with radiculopathy: T-spine CT negative ordered CT LS spine , CT head negative CT abdomen pelvis without contrast negative morphine 2 mg IV q.4h p.r.n. Uncontrolled diabetes: Insulin sliding scale Hypertension: Lisinopril Hypothyroidism: Synthroid Depression: Cymbalta Hypercholesterolemia: Lipitor History of seizure: Depakote Raj [phone] Colin Time spent 68 minutes Advanced care planning time 20 minutes Patient is full code Plan discussed with: Patient My Orders Orders - RIGO HANEY MD Procedure Category Date Status Time Ls Spine Wo Contrast CT 04/26/25 Logged 12:16 Blood Culture RYAN 04/26/25 Transmitted 12:16 Date of Service: Apr 26, 2025 Billing Provider: RIGO HANEY MD Common Visit Codes: [id number] CARE 30-74 MIN RIGO HANEY MD Apr 26, 2025 12:30
[2025-04-26 12:46] VITALS: BP 146/82; PULSE 67; RESP 20; TEMP 98.1; O2SAT 100
[2025-04-26 16:46] VITALS: BP 147/76; PULSE 74; RESP 18; TEMP 98.4; O2SAT 96
[2025-04-26 20:00] VITALS: PULSE 74; RESP 16; O2SAT 97
[2025-04-26 21:00] VITALS: BP 147/82; PULSE 74; RESP 16; TEMP 98.6; O2SAT 97
--- NOTE | 2025-04-26 22:02 | DVH ---
EXAM: CT LS SPINE WO CONTRAST INDICATION: Severe low back pain TECHNIQUE: Axial images of the lumbar spine have been obtained along with coronal and sagittal reformatted images. CT scans at this facility use dose modulation, iterative reconstruction, and/or weight based dosing when appropriate to reduce radiation dose to as low as reasonably achievable. 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 Five lumbar- type vertebral bodies are present. The most inferior well-formed disc space will be referred to as L5-S1 for purposes of numbering in this report. VERTEBRAL BODIES:Posterior fusion hardware from L4-S1 with intervertebral disc spacers. FACETS:Accelerated facet degenerative change at L3-4. Multilevel mild to moderate facet arthropathy. OTHER:Mild degenerative change of bilateral sacroiliac joints. Trace pelvic ascites. Vascular calcifications. Normal appendix. LEVEL BY LEVEL DISCUSSION BELOW: T12-L1:Unremarkable. L1-L2:Unremarkable. L2-L3:Unremarkable. L3-L4:Disc bulge with 4 mm posterior extension at L3-4 extending into bilateral inferior foramina contributing to mild foraminal narrowing at L3-4. Accelerated facet degenerative change of the level. L4-L5:Posterior decompression at L4-L5. At least mild bilateral foraminal narrowing suspected at L4-5. L5-S1:At least mild bilateral foraminal narrowing suspected at L5-S1. IMPRESSION: 1. Suspected transitional anatomy with lumbarization of S 2. The most inferior well-formed disc space will be referred to as L5-S1 for purposes of numbering in this report. 3. Posterior fusion hardware from L4-S1 with intervertebral disc spacers. 4. Disc bulge with 4 mm posterior extension at L3-4 extending into bilateral inferior foramina contributing to mild foraminal narrowing at L3-4. 5. At least mild bilateral foraminal narrowing suspected at L4-5 and L5-S1.
[2025-04-27] VITALS (7 sets, daily range): BP systolic 122–162; BP diastolic 68–106; PULSE 61–78; RESP 16–20; TEMP 97.9–98.8; O2SAT 94–98
[2025-04-27] MEDS: HYDROmorphone HCL 2 MG/ML VL/or syr IV PRN (09:25)
--- NOTE | 2025-04-27 11:43 | DVHPN2 ---
Reviewed: Care Plan, H&P, Labs, Medications, Previous Orders, Radiology Changes from previous H/P or p: No Changes Eyes: No Pain, No Vision change, No Conjunctivae inflammation, No Eyelid inflammation, No Other, No Redness ENT: No Ear pain, No Ear discharge, No Nose pain, No Nose discharge, No Nose congestion, No Mouth pain, No Mouth swelling, No Throat pain, No Throat swelling, No Other Cardiovascular: No Chest Pain, No Palpitations, No Orthopnea, No Paroxysmal Noc. Dyspnea, No Edema, No Lt Headedness, No Other Respiratory: No Cough, No Dry, No Shortness of breath, No SOB with excertion, No Wheezing, No Hemoptysis, No Pleuritic Pain, No Sputum, No Other Gastrointestinal: No Nausea, No Vomiting, No Abdominal Pain, No Diarrhea, No Constipation, No Melena, No Hematochezia, No Other Genitourinary: No Dysuria, No Frequency, No Incontinence, No Hematuria, No Retention; Other (Flank pain) Musculoskeletal: No other, No neck pain, No shoulder pain, No arm pain; back pain; No hand pain, No leg pain, No foot pain Skin: No Rash, No Lesions, No Jaundice, No Bruising, No Other Objective Vitals Vital Signs Date Time Temp Pulse Resp B/P (MAP) Pulse Ox O2 Delivery O2 Flow Rate FiO2 04/27/25 11:01 150/100 04/27/25 09:55 86 20 04/27/25 08:51 97.9 97 97.9 04/26/25 20:00 Nasal Cannula* 2 28 Intake/Output Intake and Output 04/27/25 07:00 Intake Total 1150 ml Balance 1150 ml Intake Oral 1100 ml IV Total 50 ml # Voids 4 Medications Current Medications Medications Dose Ordered Sig/Fatimah Route Start Time Stop Time Status Last Admin Dose Admin Famotidine 20 mg DAILY PO 04/25/25 10:00 04/27/25 08:58 20 MG Divalproex Sodium 500 mg BID PO 04/25/25 10:00 04/27/25 08:58 500 MG Levothyroxine Sodium 50 mcg QAM@0600 PO 04/26/25 06:00 04/27/25 05:30 50 MCG Lisinopril 10 mg DAILY PO 04/25/25 10:00 04/27/25 08:59 10 MG Clonidine HCl 0.1 mg Q4HP PRN PO 04/25/25 07:45 04/27/25 11:01 0.1 MG Ceftriaxone Sodium 50 ml @ 100 mls/hr DAILY@09 IV 04/25/25 09:00 04/27/25 08:57 100 MLS/HR Diagnostic Test (Pha) 1 strip ACHS 04/25/25 11:30 04/27/25 11:05 1 STRIP Insulin Human Regular HS SC 04/25/25 22:00 04/26/25 21:42 2 UNITS Insulin Human Regular AC SC 04/25/25 11:30 04/27/25 11:20 3 UNITS Dextrose 50 ml UD PRN IV 04/25/25 07:45 Sodium Chloride 10 ml Q8HR IV 04/25/25 14:00 04/27/25 05:30 10 ML Ondansetron HCl 4 mg Q4HP PRN IV 04/25/25 07:45 Docusate Sodium 100 mg BIDPRN PRN PO 04/25/25 07:45 Duloxetine HCl 60 mg DAILY PO 04/25/25 10:00 04/27/25 08:58 60 MG Nitroglycerin 0.4 mg Q5MINP PRN SL 04/25/25 09:00 Hydromorphone HCl 0.5 mg Q6HPRN PRN IV 04/27/25 09:00 04/27/25 09:25 0.5 MG Laboratory Results Laboratory Tests 04/26/25 07:49 Urinalysis Test 04/25/25 04:27 Urine Color Yellow (Yellow) Urine Clarity Clear (Clear) Urine pH 6.5 (5.0-9.0) Urine Specific [place] 1.025 (1.001-1.035) Urine Protein Trace (Negative) H Urine Ketones Negative (Negative) Urine Blood Negative /uL (Negative) Urine Nitrite Negative (Negative) Urine Bilirubin Negative (Negative) Urine Urobilinogen Normal mg/dL (Negative) Urine Leukocyte Esterase 2+ /uL (Negative) Urine RBC 2 /hpf (0 - 4) Urine Microscopic WBC 43 /HPF (0-5) H Urine Squamous Epithelial Cells Few /hpf (<5) Urine Bacteria None seen /hpf (None Seen) Urine Mucus Few (None Seen) Urine Glucose 4+ mg/dL (Normal) H Microbiology Microbiology Date/Time Source Procedure Growth Status 04/26/25 04:45 Nose MRSA Screen - Final Complete 04/25/25 04:27 Voided Urine Urine Culture - Final Complete Labs and/or images reviewed: Labs reviewed by me, Image(s) reviewed by me Assessment/Plan Assessment/Plan Sepsis secondary to urinary tract infection: Blood cultures pending, urine cultures mixed, continue Rocephin Acute pyelonephritis Severe back pain with radiculopathy: T-spine CT negative ordered CT LS spine shows disc narrowing at L4-5 previous signs of L-spine surgery, CT head negative CT abdomen pelvis without contrast negative Percocet 10 q.6 hours, baclofen 10 mg PO TID, consult for Dr. Franz Uncontrolled diabetes: Insulin sliding scale Hypertension: Lisinopril Hypothyroidism: Synthroid Depression: Cymbalta Hypercholesterolemia: Lipitor History of seizure: Depakote Raj [phone] at bedside Physical therapy ordered PCP Dr Colin Time spent 68 minutes Advanced care planning time 20 minutes Patient is full code Plan discussed with: Patient My Orders Orders - RIGO HANEY MD Procedure Category Date Status Time Ls Spine Wo Contrast CT 04/26/25 Resulted 12:16 Hydromorphone PHA 04/27/25 In Process Injection (Dilaudid 09:00 Date of Service: Apr 27, 2025 Billing Provider: RIGO HANEY MD Common Visit Codes: [id number] INP/OBS CARE(HIGH) RIGO HANEY MD Apr 27, 2025 11:43
[2025-04-27] MEDS: OXYCODONE W/ ACETAMINOPHEN 5/325MG TABLET PO PRN (12:39)
[2025-04-27] MEDS: BACLOFEN 10 MG TAB PO PRN (12:39)
[2025-04-28] VITALS (8 sets, daily range): BP systolic 130–156; BP diastolic 75–91; PULSE 62–68; RESP 16–20; TEMP 97.9–98.3; O2SAT 95–97
[2025-04-28 06:28] LABS: Hematocrit 36.0 % (36.0-46.0); Hemoglobin 12.5 g/dL (12.2-16.2); Mean Corpuscular Hemoglobin 32.1 pg (28.0-32.0); Mean Corpuscular Volume 92.4 fL (80.0-100.0); Nucleated Red Blood Cells % 0.2 %
[2025-04-28 06:51] LABS: Alkaline Phosphatase 99 U/L (46-116); Anion Gap 8 (5-15); BUN/Creatinine Ratio 19.6 (10.0-20.0); Blood Urea Nitrogen 18 mg/dL (9-23); Calcium 9.2 mg/dL (8.7-10.4); Carbon Dioxide 26 mmol/L (20-31); Chloride 105 mmol/L (98-107); Potassium 4.3 mmol/L (3.5-5.1); Sodium 139 mmol/L (136-145)
[2025-04-28 06:52] LABS: Total Protein 6.2 g/dL (5.7-8.2)
[2025-04-28 06:53] LABS: Albumin 3.9 g/dL (3.2-4.8)
[2025-04-28 06:54] LABS: Bilirubin, Total 0.5 mg/dL (0.2-1.0)
[2025-04-28 07:00] LABS: Alanine Aminotransferase 48 U/L (7-40); Glucose 118 mg/dL (74-106)
--- NOTE | 2025-04-28 11:57 | DVHINCON2 ---
Consultation - Surgical Date Seen: Apr 28, 2025 Referring Physician Referring Physician Attending Doctor: Riog Haney MD Reason for Consultation Reason for Visit: Intractable back pain History of Present Illness History of Present Illness History of Present Illness The patient is a 60-year-old female with past medical history of thyroid disease, hyperlipidemia, depression, hypertension, and diabetes mellitus who presented to [facility] ED with complaint of intractable back pain. Patient reports that she has been experiencing diffuse back pain rating 10/10 numeric scale, radiating to her flank, associated with shortness of breaths, getting worse that prompted this visit. Patient was seen at [place] yesterday, daughter reporting minimal workup with patient and discharged home without any reason for the pain. Patient was seen and evaluated in the ED, laboratory data shows WBC 12.7, platelets 287, sodium 143, potassium 4.4, BUN 13, creatinine 0.95, GFR 68, glucose 171, calcium 9.2, blood pressure 140/69, heart rate 84, temperature 98.5 F, O2 saturation 97% on room. Urinalysis positive for urinary tract infection. Thoracic spine x-ray show no acute osseous abnormality. Patient was started on IV antibiotic regimen Rocephin, please see medication orders section in the computer. On my assessment, patient denied chest pain, no headache, dizziness, diaphoresis, shortness of breaths, no abdominal pain, diarrhea, nausea, vomiting, fever, no chills. Patient was admitted for further evaluation and medical management. Past Medical/Surgical History Past Medical/Surgical History Past Medical History DM, HTN, Thyroid disease, HLD, Depression Past Surgical History Back surgery, Cholecystectomy, Family and Social History Family and Social History Family History Reviewed, noncontributory to the management of this case. Past Social History The patient lives at home, smokes cigarettes, denies alcohol or illicit drugs abuse. Allergies and medications Allergies: Coded Allergies: Acetaminophen (Verified Allergy, Unknown, 04/24/25) Hydrocodone (Verified Allergy, Unknown, 04/24/25) Review of systems Review of Systems: NEURO:Abnormal (intractable back pain) Examination Vital signs imagine: ORDERING PHYSICIAN: RIGO HANEY MD PROCEDURE(s): LS2CT - LS SPINE WO CONTRAST REASON: Severe low back pain ORDER NUMBER(s): [id number], ACCESSION NUMBER(s): [id number] EXAM: CT LS SPINE WO CONTRAST INDICATION: Severe low back pain TECHNIQUE: Axial images of the lumbar spine have been obtained along with coronal and sagittal reformatted images. CT scans at this facility use dose modulation, iterative reconstruction, and/or weight based dosing when appropriate to reduce radiation dose to as low as reasonably achievable. 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 Five lumbar- type vertebral bodies are present. The most inferior well-formed disc space will be referred to as L5-S1 for purposes of numbering in this report. VERTEBRAL BODIES:Posterior fusion hardware from L4-S1 with intervertebral disc spacers. FACETS:Accelerated facet degenerative change at L3-4. Multilevel mild to moderate facet arthropathy. OTHER:Mild degenerative change of bilateral sacroiliac joints. Trace pelvic ascites. Vascular calcifications. Normal appendix. LEVEL BY LEVEL DISCUSSION BELOW: T12-L1:Unremarkable. L1-L2:Unremarkable. L2-L3:Unremarkable. L3-L4:Disc bulge with 4 mm posterior extension at L3-4 extending into bilateral inferior foramina contributing to mild foraminal narrowing at L3-4. Accelerated facet degenerative change of the level. L4-L5:Posterior decompression at L4-L5. At least mild bilateral foraminal narrowing suspected at L4-5. L5-S1:At least mild bilateral foraminal narrowing suspected at L5-S1. IMPRESSION: 1. Suspected transitional anatomy with lumbarization of S 2. The most inferior well-formed disc space will be referred to as L5-S1 for purposes of numbering in this report. 3. Posterior fusion hardware from L4-S1 with intervertebral disc spacers. 4. Disc bulge with 4 mm posterior extension at L3-4 extending into bilateral inferior foramina contributing to mild foraminal narrowing at L3-4. 5. At least mild bilateral foraminal narrowing suspected at L4-5 and L5-S1. Vital Signs Date Time Temp Pulse Resp B/P (MAP) Pulse Ox O2 Delivery O2 Flow Rate FiO2 04/28/25 08:53 98.0 62 18 156/86 (109) 95 98.0 04/28/25 08:00 Room Air* 0 21 Medications Current Medications Medications (Trade) Dose Ordered Sig/Fatimah Route PRN Reason Start Time Stop Time Status Last Admin Oxycodone/ Acetaminophen (Percocet 5/ 325MG Tablet) 2 tab Q6HP PRN PO MODERATE PAIN (4-6 PAIN SCALE) 04/27/25 11:45 04/28/25 08:21 Baclofen (Liorisal Tablet) 10 mg Q8HP PRN PO FOR MUSCLE SPASM 04/27/25 11:45 04/28/25 05:01 Laboratory Labs Test 04/28/25 05:56 04/28/25 05:51 04/27/25 20:56 04/25/25 04:27 Range/Units POC Glucose 125 H 70-106 mg/dl White Blood Count 10.3 4.4-10.8 10^3/uL Red Blood Count 3.90 L 4.0-5.20 10^6/uL Hemoglobin 12.5 12.2-16.2 g/dL Hematocrit 36.0 36.0-46.0 % Mean Corpuscular Volume 92.4 80.0-100.0 fL Mean Corpuscular Hemoglobin 32.1 H 28.0-32.0 pg Mean Corpuscular Hemoglobin Concent 34.7 32.0-36.0 g/dL Red Cell Distribution Width 13.4 11.8-14.3 % Platelet Count 271 140-450 10^3/uL Mean Platelet Volume 7.6 6.9-10.8 fL Neutrophils (%) (Auto) 42.2 37.0-80.0 % Lymphocytes (%) (Auto) 45.0 10.0-50.0 % Monocytes (%) (Auto) 10.7 0.0-12.0 % Eosinophils (%) (Auto) 1.5 0.0-7.0 % Basophils (%) (Auto) 0.6 0.0-2.0 % Neutrophils # (Auto) 4.4 1.6-8.6 10 ^3/uL Lymphocytes # (Auto) 4.6 0.4-5.4 10 ^3/uL Monocytes # (Auto) 1.1 0-1.3 10 ^3/uL Eosinophils # (Auto) 0.2 0-0.8 10 ^3/uL Basophils # (Auto) 0.1 0-0.2 10 ^3/uL Nucleated Red Blood Cells 0.2 % Sodium Level 139 # 136-145 mmol/L Potassium Level 4.3 3.5-5.1 mmol/L Chloride Level 105 98-107 mmol/L Carbon Dioxide Level 26 20-31 mmol/L Anion Gap 8 5-15 Blood Urea Nitrogen 18 9-23 mg/dL Creatinine 0.92 0.550-1.02 mg/dL Glomerular Filtration Rate Calc 70 >90 mL/min BUN/Creatinine Ratio 19.6 10.0-20.0 Serum Glucose 118 H 74-106 mg/dL Calcium Level 9.2 8.7-10.4 mg/dL Total Bilirubin 0.5 0.2-1.0 mg/dL Aspartate Amino Transferase (AST) 29 13-40 U/L Alanine Aminotransferase (ALT) 48 H 7-40 U/L Alkaline Phosphatase 99 46-116 U/L Total Protein 6.2 5.7-8.2 g/dL Albumin 3.9 3.2-4.8 g/dL Valproic Acid Level 56.7 50-100 ug/mL Urine Color Yellow Yellow Urine Clarity Clear Clear Urine pH 6.5 5.0-9.0 Urine Specific [place] 1.025 1.001-1.035 Urine Protein Trace H Negative Urine Ketones Negative Negative Urine Blood Negative Negative /uL Urine Nitrite Negative Negative Urine Bilirubin Negative Negative Urine Urobilinogen Normal Negative mg/dL Urine Leukocyte Esterase 2+ Negative /uL Urine RBC 2 0 - 4 /hpf Urine Microscopic WBC 43 H 0-5 /HPF Urine Squamous Epithelial Cells Few <5 /hpf Urine Bacteria None seen None Seen /hpf Urine Mucus Few None Seen Urine Glucose 4+ H Normal mg/dL Microbiology Date/Time Source Procedure Growth Status 04/26/25 04:45 Nose MRSA Screen - Final Complete 04/25/25 04:27 Voided Urine Urine Culture - Final Complete Examination: GENERAL:Normal, HEENT:Normal, NECK:Normal, LUNGS:Normal, CVS:Normal, ABDOMEN:Normal, MSK:Abnormal (pain with movement, twisting), SKIN:Normal, NEURO:Abnormal (low back pain), :Normal Problem List/Assessment/Plan Problems: (1) Intractable back pain (2) Lumbar post-laminectomy syndrome Assessment and Plan Disc bulge with 4 mm posterior extension at L3-4 extending into bilateral inferior foramina contributing to mild foraminal narrowing at L3-4. At least mild bilateral foraminal narrowing suspected at L4-5 and L5-S1. post laminectomy syndrome ordering MRI lumbar without contrast Patient will need to be cleared for outpatient surgery Continue care and support per admitting team's discretion Physical therapy evaluation, treatment recommendations and safe discharge planning recommendations Effective pain management including muscle relaxers, the patient is complaining of muscle spasms, Baclofen is ineffective Discussed treatment options with the patient, outpatient treatment plan, ensured the patient received muscle relaxers pain management during her hospital stay No barriers to discharge from a spine surgery perspective, patient will need to follow up with PCP and make appt with Dr Shaw office Call with questions Dari Alejo [facility] Orthopaedic Spine Surgery nurse practitioner For Dr Asim Franz Patient was examined, chart reviewed, labs evaluated, and diagnostic studies and findings analyzed. Case was discussed with Dr. Adrian Franz who formulated the plan of care. This medical document was created using an electronic medical record system with [employer] dictation system. Although this document has been carefully reviewed, there might still be some phonetic and typographical errors. These areas are purely typographical due to imperfections of the software programs, and do not reflect any compromise in the patient's medical care. Plan discussed with Plan discussed with: Patient, Other (admitting team) Visit Coding Surgery Date of Service if different f: Apr 28, 2025 Billing Provider: ISACC ALEJO NP Surgery Visit Codes: [id number] - INP CONSULT <55 MIN ISACC ALEJO NP Apr 28, 2025 11:57
--- NOTE | 2025-04-28 12:10 | DVHPN2 ---
Reviewed: Care Plan, H&P, Labs, Medications, Previous Orders, Radiology Changes from previous H/P or p: No Changes Eyes: No Pain, No Vision change, No Conjunctivae inflammation, No Eyelid inflammation, No Other, No Redness ENT: No Ear pain, No Ear discharge, No Nose pain, No Nose discharge, No Nose congestion, No Mouth pain, No Mouth swelling, No Throat pain, No Throat swelling, No Other Cardiovascular: No Chest Pain, No Palpitations, No Orthopnea, No Paroxysmal Noc. Dyspnea, No Edema, No Lt Headedness, No Other Respiratory: No Cough, No Dry, No Shortness of breath, No SOB with excertion, No Wheezing, No Hemoptysis, No Pleuritic Pain, No Sputum, No Other Gastrointestinal: No Nausea, No Vomiting, No Abdominal Pain, No Diarrhea, No Constipation, No Melena, No Hematochezia, No Other Genitourinary: No Dysuria, No Frequency, No Incontinence, No Hematuria, No Retention; Other (Flank pain) Musculoskeletal: No other, No neck pain, No shoulder pain, No arm pain; back pain; No hand pain, No leg pain, No foot pain Skin: No Rash, No Lesions, No Jaundice, No Bruising, No Other Objective Vitals Vital Signs Date Time Temp Pulse Resp B/P (MAP) Pulse Ox O2 Delivery O2 Flow Rate FiO2 04/28/25 08:53 98.0 62 18 156/86 (109) 95 98.0 04/28/25 08:00 Room Air* 0 21 Intake/Output Intake and Output 04/28/25 07:00 Intake Total 1050 ml Balance 1050 ml Intake Oral 1000 ml IV Total 50 ml # Voids 9 Medications Current Medications Medications Dose Ordered Sig/Fatimah Route Start Time Stop Time Status Last Admin Dose Admin Famotidine 20 mg DAILY PO 04/25/25 10:00 04/28/25 08:22 20 MG Divalproex Sodium 500 mg BID PO 04/25/25 10:00 04/28/25 08:22 500 MG Levothyroxine Sodium 50 mcg QAM@0600 PO 04/26/25 06:00 04/28/25 05:54 50 MCG Lisinopril 10 mg DAILY PO 04/25/25 10:00 04/28/25 08:22 10 MG Clonidine HCl 0.1 mg Q4HP PRN PO 04/25/25 07:45 04/27/25 11:01 0.1 MG Ceftriaxone Sodium 50 ml @ 100 mls/hr DAILY@09 IV 04/25/25 09:00 04/28/25 08:23 100 MLS/HR Diagnostic Test (Pha) 1 strip ACHS 04/25/25 11:30 04/28/25 11:47 1 STRIP Insulin Human Regular HS SC 04/25/25 22:00 04/27/25 21:35 2 UNITS Insulin Human Regular AC SC 04/25/25 11:30 04/28/25 11:48 3 UNITS Dextrose 50 ml UD PRN IV 04/25/25 07:45 Sodium Chloride 10 ml Q8HR IV 04/25/25 14:00 04/28/25 05:54 10 ML Ondansetron HCl 4 mg Q4HP PRN IV 04/25/25 07:45 Docusate Sodium 100 mg BIDPRN PRN PO 04/25/25 07:45 Duloxetine HCl 60 mg DAILY PO 04/25/25 10:00 04/28/25 08:22 60 MG Nitroglycerin 0.4 mg Q5MINP PRN SL 04/25/25 09:00 Oxycodone/ Acetaminophen 2 tab Q6HP PRN PO 04/27/25 11:45 04/28/25 08:21 2 TAB Baclofen 10 mg Q8HP PRN PO 04/27/25 11:45 04/28/25 05:01 10 MG Laboratory Results Laboratory Tests 04/28/25 05:51 Chemistry Test 04/28/25 05:51 Albumin 3.9 g/dL (3.2-4.8) Calcium Level 9.2 mg/dL (8.7-10.4) Total Protein 6.2 g/dL (5.7-8.2) LFT Test 04/28/25 05:51 Alanine Aminotransferase (ALT) 48 U/L (7-40) H Alkaline Phosphatase 99 U/L (46-116) Aspartate Amino Transferase (AST) 29 U/L (13-40) Total Bilirubin 0.5 mg/dL (0.2-1.0) Urinalysis Test 04/25/25 04:27 Urine Color Yellow (Yellow) Urine Clarity Clear (Clear) Urine pH 6.5 (5.0-9.0) Urine Specific [place] 1.025 (1.001-1.035) Urine Protein Trace (Negative) H Urine Ketones Negative (Negative) Urine Blood Negative /uL (Negative) Urine Nitrite Negative (Negative) Urine Bilirubin Negative (Negative) Urine Urobilinogen Normal mg/dL (Negative) Urine Leukocyte Esterase 2+ /uL (Negative) Urine RBC 2 /hpf (0 - 4) Urine Microscopic WBC 43 /HPF (0-5) H Urine Squamous Epithelial Cells Few /hpf (<5) Urine Bacteria None seen /hpf (None Seen) Urine Mucus Few (None Seen) Urine Glucose 4+ mg/dL (Normal) H Microbiology Microbiology Date/Time Source Procedure Growth Status 04/26/25 04:45 Nose MRSA Screen - Final Complete 04/25/25 04:27 Voided Urine Urine Culture - Final Complete Labs and/or images reviewed: Labs reviewed by me, Image(s) reviewed by me Assessment/Plan Assessment/Plan Sepsis secondary to urinary tract infection: Blood cultures pending, urine cultures mixed, continue Rocephin Acute pyelonephritis Severe back pain with radiculopathy: T-spine CT negative ordered CT LS spine shows disc narrowing at L4-5 previous signs of L-spine surgery, CT head negative CT abdomen pelvis without contrast negative Percocet 10 q.6 hours, baclofen 10 mg PO TID, consult for Dr. Franz Uncontrolled diabetes: Insulin sliding scale Hypertension: Lisinopril Hypothyroidism: Synthroid Depression: Cymbalta Hypercholesterolemia: Lipitor History of seizure: Depakote Raj [phone] at bedside Physical therapy ordered PCP Dr Colin Time spent 55 minutes Advanced care planning time 20 minutes Patient is full code Plan discussed with: Patient Date of Service: Apr 28, 2025 Billing Provider: RIGO HANEY MD Common Visit Codes: [id number] INP/OBS CARE(HIGH) RIGO HANEY MD Apr 28, 2025 12:10
[2025-04-28] MEDS: CYCLOBENZAPRINE HCL 10 MG TAB PO SCH (14:50)
--- NOTE | 2025-04-28 14:54 | DVH ---
CLINICAL INFORMATION: Surgical planning. Herniated disc. TECHNIQUE: Multisequence multiplanar MRI images of the lumbar spine were obtained without contrast. COMPARISON: CT LS SPINE WO CONTRAST on DOS: 04/26/25 INTERPRETATION: For the purposes of numbering on this exam, there is a lumbarized S1 at the lumbosacral junction with rudimentary disc at S1-S2. The last typical appearing lumbar disc space is designated L5-S1. Postsurgical changes of posterior spinal fusion at L4-S1 and interbody fusion at L4-L5 and L 5-S1. Vertebral body alignment is within normal limits. Vertebral body heights are maintained. There are laminectomies at L4 and L5. No focal suspicious marrow signal abnormality. Visualized spinal cord and cauda equina are within normal limits. The conus medullaris is appropriate in signal at the L2 level. [id number] fatty atrophy in the lower lumbosacral paraspinal musculature at the level of the postsurgical changes. Bilateral parapelvic cysts incidentally noted in the kidneys. L1-L2: Disc desiccation. No disc bulge or significant spinal canal stenosis. No significant neural foraminal stenosis. L2-L3: Disc desiccation. No significant disc bulge or spinal canal stenosis. Facet hypertrophy with mild bilateral neural foraminal stenoses. L3-L4: Disc desiccation with diffuse disc bulge causing moderate spinal canal stenosis and partial effacement of the lateral recesses. Facet hypertrophy and encroachment of the neural foramina by the disc bulge contributes to moderate to severe bilateral neural foraminal stenoses. Annular fissure also noted. L4-L5: Disc desiccation with minimal disc bulge mildly flattening the ventral aspect of the thecal sac. No significant spinal canal stenosis. Facet hypertrophy with moderate bilateral neural foraminal stenoses. Artifact from the surgical hardware limits evaluation of the neural foramina. L5-S1: Disc desiccation with diffuse disc bulge mildly flattening the ventral aspect of the thecal sac. No significant spinal canal stenosis. Facet hypertrophy with likely moderate bilateral neural foraminal stenoses. Artifact from the surgical hardware limits evaluation of adjacent structures. IMPRESSION: 1. Disc bulge at L3-L4 causing moderate spinal canal stenosis and partial effacement of the lateral recesses. 2. Multilevel facet hypertrophy with associated neural foraminal stenoses as detailed above, greatest at the L3-L4 level, where there is moderate to severe bilateral neural foraminal stenosis. 3. Annular fissure at L3-L4. 4. Postsurgical changes as detailed above. 5. Additional findings as described above.
[2025-04-29] VITALS (7 sets, daily range): BP systolic 103–139; BP diastolic 70–95; PULSE 69–89; RESP 16–18; TEMP 97.6–98.6; O2SAT 94–97
--- NOTE | 2025-04-29 11:50 | DVHPN2 ---
Reviewed: Care Plan, H&P, Labs, Medications, Previous Orders, Radiology Changes from previous H/P or p: No Changes Eyes: No Pain, No Vision change, No Conjunctivae inflammation, No Eyelid inflammation, No Other, No Redness ENT: No Ear pain, No Ear discharge, No Nose pain, No Nose discharge, No Nose congestion, No Mouth pain, No Mouth swelling, No Throat pain, No Throat swelling, No Other Cardiovascular: No Chest Pain, No Palpitations, No Orthopnea, No Paroxysmal Noc. Dyspnea, No Edema, No Lt Headedness, No Other Respiratory: No Cough, No Dry, No Shortness of breath, No SOB with excertion, No Wheezing, No Hemoptysis, No Pleuritic Pain, No Sputum, No Other Gastrointestinal: No Nausea, No Vomiting, No Abdominal Pain, No Diarrhea, No Constipation, No Melena, No Hematochezia, No Other Genitourinary: No Dysuria, No Frequency, No Incontinence, No Hematuria, No Retention; Other (Flank pain) Musculoskeletal: No other, No neck pain, No shoulder pain, No arm pain; back pain; No hand pain, No leg pain, No foot pain Skin: No Rash, No Lesions, No Jaundice, No Bruising, No Other Objective Vitals Vital Signs Date Time Temp Pulse Resp B/P (MAP) Pulse Ox O2 Delivery O2 Flow Rate FiO2 04/29/25 09:54 116/71 04/29/25 09:00 98.6 73 18 94 98.6 04/29/25 08:00 Room Air* 0 21 Intake/Output Intake and Output 04/29/25 07:00 Intake Total 940 ml Balance 940 ml Intake Oral 890 ml IV Total 50 ml # Voids 8 # Bowel Movements 1 Medications Current Medications Medications Dose Ordered Sig/Fatimah Route Start Time Stop Time Status Last Admin Dose Admin Famotidine 20 mg DAILY PO 04/25/25 10:00 04/29/25 09:55 20 MG Divalproex Sodium 500 mg BID PO 04/25/25 10:00 04/29/25 09:53 500 MG Levothyroxine Sodium 50 mcg QAM@0600 PO 04/26/25 06:00 04/29/25 06:02 50 MCG Lisinopril 10 mg DAILY PO 04/25/25 10:00 04/29/25 09:54 10 MG Clonidine HCl 0.1 mg Q4HP PRN PO 04/25/25 07:45 04/27/25 11:01 0.1 MG Ceftriaxone Sodium 50 ml @ 100 mls/hr DAILY@09 IV 04/25/25 09:00 04/29/25 09:52 100 MLS/HR Diagnostic Test (Pha) 1 strip ACHS 04/25/25 11:30 04/29/25 06:54 1 STRIP Insulin Human Regular HS SC 04/25/25 22:00 04/28/25 22:17 3 UNITS Insulin Human Regular AC SC 04/25/25 11:30 04/29/25 06:41 2 UNITS Dextrose 50 ml UD PRN IV 04/25/25 07:45 Sodium Chloride 10 ml Q8HR IV 04/25/25 14:00 04/29/25 06:01 10 ML Ondansetron HCl 4 mg Q4HP PRN IV 04/25/25 07:45 Docusate Sodium 100 mg BIDPRN PRN PO 04/25/25 07:45 Duloxetine HCl 60 mg DAILY PO 04/25/25 10:00 04/29/25 09:55 60 MG Nitroglycerin 0.4 mg Q5MINP PRN SL 04/25/25 09:00 Oxycodone/ Acetaminophen 2 tab Q6HP PRN PO 04/27/25 11:45 04/29/25 06:04 2 TAB Cyclobenzaprine HCl 10 mg TID PO 04/28/25 14:00 04/29/25 06:02 10 MG Laboratory Results Laboratory Tests 04/28/25 05:51 Urinalysis Test 04/25/25 04:27 Urine Color Yellow (Yellow) Urine Clarity Clear (Clear) Urine pH 6.5 (5.0-9.0) Urine Specific [place] 1.025 (1.001-1.035) Urine Protein Trace (Negative) H Urine Ketones Negative (Negative) Urine Blood Negative /uL (Negative) Urine Nitrite Negative (Negative) Urine Bilirubin Negative (Negative) Urine Urobilinogen Normal mg/dL (Negative) Urine Leukocyte Esterase 2+ /uL (Negative) Urine RBC 2 /hpf (0 - 4) Urine Microscopic WBC 43 /HPF (0-5) H Urine Squamous Epithelial Cells Few /hpf (<5) Urine Bacteria None seen /hpf (None Seen) Urine Mucus Few (None Seen) Urine Glucose 4+ mg/dL (Normal) H Microbiology Microbiology Date/Time Source Procedure Growth Status 04/27/25 13:33 Blood Blood Culture - Preliminary NO GROWTH AFTER 24 HOURS OF INCUBATION. Resulted 04/26/25 04:45 Nose MRSA Screen - Final Complete 04/25/25 04:27 Voided Urine Urine Culture - Final Complete Labs and/or images reviewed: Labs reviewed by me, Image(s) reviewed by me Assessment/Plan Assessment/Plan Sepsis secondary to urinary tract infection: Blood cultures negative urine cultures mixed, continue Rocephin Acute pyelonephritis Severe back pain with radiculopathy: T-spine CT negative ordered CT LS spine shows disc narrowing at L4-5 previous signs of L-spine surgery, CT head negative CT abdomen pelvis without contrast negative Percocet 10 q.6 hours, baclofen 10 mg PO TID, consult for Dr. Maria M barrera, advised conservative management Uncontrolled diabetes: Insulin sliding scale Hypertension: Lisinopril Hypothyroidism: Synthroid Depression: Cymbalta Hypercholesterolemia: Lipitor History of seizure: Depakote Raj [phone] at bedside Physical therapy ordered PCP Dr Colin Time spent 55 minutes Advanced care planning time 20 minutes Patient is full code Plan discussed with: Patient Date of Service: Apr 29, 2025 Billing Provider: RIGO HANEY MD Common Visit Codes: [id number] INP/OBS CARE(HIGH) RIGO HANEY MD Apr 29, 2025 11:50
--- NOTE | 2025-04-29 12:01 | DVHDS2 ---
Discharge Summary Date of Admission Apr 25, 2025 at 08:51 Date of Discharge: Apr 29, 2025 Admitting Diagnosis Severe back pain Wounds: None Labs/Diagnostic Data: Laboratory Results Test 04/28/25 21:28 04/28/25 05:51 04/27/25 20:56 04/25/25 04:27 POC Glucose 178 mg/dl (70-106) White Blood Count 10.3 10^3/uL (4.4-10.8) Red Blood Count 3.90 10^6/uL (4.0-5.20) Hemoglobin 12.5 g/dL (12.2-16.2) Hematocrit 36.0 % (36.0-46.0) Mean Corpuscular Volume 92.4 fL (80.0-100.0) Mean Corpuscular Hemoglobin 32.1 pg (28.0-32.0) Mean Corpuscular Hemoglobin Concent 34.7 g/dL (32.0-36.0) Red Cell Distribution Width 13.4 % (11.8-14.3) Platelet Count 271 10^3/uL (140-450) Mean Platelet Volume 7.6 fL (6.9-10.8) Neutrophils (%) (Auto) 42.2 % (37.0-80.0) Lymphocytes (%) (Auto) 45.0 % (10.0-50.0) Monocytes (%) (Auto) 10.7 % (0.0-12.0) Eosinophils (%) (Auto) 1.5 % (0.0-7.0) Basophils (%) (Auto) 0.6 % (0.0-2.0) Neutrophils # (Auto) 4.4 10 ^3/uL (1.6-8.6) Lymphocytes # (Auto) 4.6 10 ^3/uL (0.4-5.4) Monocytes # (Auto) 1.1 10 ^3/uL (0-1.3) Eosinophils # (Auto) 0.2 10 ^3/uL (0-0.8) Basophils # (Auto) 0.1 10 ^3/uL (0-0.2) Nucleated Red Blood Cells 0.2 % Sodium Level 139 mmol/L (136-145) Potassium Level 4.3 mmol/L (3.5-5.1) Chloride Level 105 mmol/L (98-107) Carbon Dioxide Level 26 mmol/L (20-31) Anion Gap 8 (5-15) Blood Urea Nitrogen 18 mg/dL (9-23) Creatinine 0.92 mg/dL (0.550-1.02) Glomerular Filtration Rate Calc 70 mL/min (>90) BUN/Creatinine Ratio 19.6 (10.0-20.0) Serum Glucose 118 mg/dL (74-106) Calcium Level 9.2 mg/dL (8.7-10.4) Total Bilirubin 0.5 mg/dL (0.2-1.0) Aspartate Amino Transferase (AST) 29 U/L (13-40) Alanine Aminotransferase (ALT) 48 U/L (7-40) Alkaline Phosphatase 99 U/L (46-116) Total Protein 6.2 g/dL (5.7-8.2) Albumin 3.9 g/dL (3.2-4.8) Valproic Acid Level 56.7 ug/mL (50-100) Urine Color Yellow (Yellow) Urine Clarity Clear (Clear) Urine pH 6.5 (5.0-9.0) Urine Specific [place] 1.025 (1.001-1.035) Urine Protein Trace (Negative) Urine Ketones Negative (Negative) Urine Blood Negative /uL (Negative) Urine Nitrite Negative (Negative) Urine Bilirubin Negative (Negative) Urine Urobilinogen Normal mg/dL (Negative) Urine Leukocyte Esterase 2+ /uL (Negative) Urine RBC 2 /hpf (0 - 4) Urine Microscopic WBC 43 /HPF (0-5) Urine Squamous Epithelial Cells Few /hpf (<5) Urine Bacteria None seen /hpf (None Seen) Urine Mucus Few (None Seen) Urine Glucose 4+ mg/dL (Normal) Other Laboratory Tests 04/28/25 05:51 Brief Hx & Hospital Course: 60-year-old female with a history of hypertension hypothyroidism depression seizures cholesterol diabetes chronic back pain came in complaining of CVA left flank pain found to have urinary tract infection sepsis treated with Rocephin blood cultures negative urine cultures were mixed patient has had acute pyelonephritis CT LS spine and T-spine showed disc narrowing at L4-5 and previous L-spine surgery patient received physical therapy treated with the Percocet baclofen consult for spine surgeon Dr. Franz who advised conservative management. Patient is being [facility] for Rocephin 1 g IV daily for two weeks for complicated UTI and for physical therapy for the back pain and pain management. Plan agreeable with the patient and her Raj. Consults/Reason for consult Spine surgeon Dr. Franz Operations or Procedures CT LS spine Condition at Discharge: Fair Final Diagnosis/Problems List Sepsis secondary to urinary tract infection: Blood cultures negative urine cultures mixed, continue Rocephin Acute pyelonephritis Severe back pain with radiculopathy: T-spine CT negative ordered CT LS spine shows disc narrowing at L4-5 previous signs of L-spine surgery, CT head negative CT abdomen pelvis without contrast negative Percocet 10 q.6 hours, baclofen 10 mg PO TID, consult for Dr. Franz appreciated, advised conservative management Uncontrolled diabetes: Insulin sliding scale Hypertension: Lisinopril Hypothyroidism: Synthroid Depression: Cymbalta Hypercholesterolemia: Lipitor History of seizure: Depakote Discharge Disposition: Detention Facility Discharge Instruct/Medications Diet: Cardiac 2g Na,low cholest Activity: Light activity Follow Up/Referral: Follow up with the longterm Medications: Rocephin 1 g IV daily for two weeks for complicated UTI See list for other meds 39 (Time taken for discharge summary 39 minutes) Discharge Statement: "Patient was advised to return to the ER or call 911 if any headaches, dizziness, shortness of breath, chest pain, abdominal pain, bleeding, fevers, or worsening of medical condition. Patient was counseled about treatment plan, medications, possible side effects, patientverbalized understanding. All questions were answered to the best of my ability. This discharge took greater then 30 minutes in planning, reviewing documentation, counseling the patient, and discussing with other team members." ASSESSMENT ASSESSMENT Hospital Course Uneventful Assessment Sepsis secondary to urinary tract infection: Blood cultures negative urine cultures mixed, continue Rocephin Acute pyelonephritis Severe back pain with radiculopathy: T-spine CT negative ordered CT LS spine shows disc narrowing at L4-5 previous signs of L-spine surgery, CT head negative CT abdomen pelvis without contrast negative Percocet 10 q.6 hours, baclofen 10 mg PO TID, consult for Dr. Franz appreciated, advised conservative management Uncontrolled diabetes: Insulin sliding scale Hypertension: Lisinopril Hypothyroidism: Synthroid Depression: Cymbalta Hypercholesterolemia: Lipitor History of seizure: Depakote Date of Service: Apr 29, 2025 Billing Provider: RIGO HANEY MD Common Visit Codes: [id number] DISCH DAY >30min RIGO HANEY MD Apr 29, 2025 12:01
[2025-04-30 01:00] VITALS: BP 122/73; PULSE 84; RESP 16; TEMP 98; O2SAT 95
[2025-04-30 05:00] VITALS: BP 116/72; PULSE 81; RESP 18; TEMP 97.6; O2SAT 94
[2025-04-30 09:00] VITALS: BP 115/72; PULSE 82; RESP 17; TEMP 98.4; O2SAT 97
--- NOTE | 2025-04-30 10:48 | DVHPN2 ---
Reviewed: Care Plan, H&P, Labs, Medications, Previous Orders, Radiology Changes from previous H/P or p: No Changes Eyes: No Pain, No Vision change, No Conjunctivae inflammation, No Eyelid inflammation, No Other, No Redness ENT: No Ear pain, No Ear discharge, No Nose pain, No Nose discharge, No Nose congestion, No Mouth pain, No Mouth swelling, No Throat pain, No Throat swelling, No Other Cardiovascular: No Chest Pain, No Palpitations, No Orthopnea, No Paroxysmal Noc. Dyspnea, No Edema, No Lt Headedness, No Other Respiratory: No Cough, No Dry, No Shortness of breath, No SOB with excertion, No Wheezing, No Hemoptysis, No Pleuritic Pain, No Sputum, No Other Gastrointestinal: No Nausea, No Vomiting, No Abdominal Pain, No Diarrhea, No Constipation, No Melena, No Hematochezia, No Other Genitourinary: No Dysuria, No Frequency, No Incontinence, No Hematuria, No Retention; Other (Flank pain) Musculoskeletal: No other, No neck pain, No shoulder pain, No arm pain; back pain; No hand pain, No leg pain, No foot pain Skin: No Rash, No Lesions, No Jaundice, No Bruising, No Other Objective Vitals Vital Signs Date Time Temp Pulse Resp B/P (MAP) Pulse Ox O2 Delivery O2 Flow Rate FiO2 04/30/25 09:37 115/72 04/30/25 09:00 98.4 82 17 97 98.4 04/30/25 08:00 Room Air* 0 21 Intake/Output Intake and Output 04/30/25 07:00 Intake Total 1250 ml Output Total 1000 ml Balance 250 ml Intake Oral 1200 ml IV Total 50 ml Output Urine Total 1000 ml # Voids 4 # Bowel Movements 1 Medications Current Medications Medications Dose Ordered Sig/Fatimah Route Start Time Stop Time Status Last Admin Dose Admin Famotidine 20 mg DAILY PO 04/25/25 10:00 04/30/25 09:37 20 MG Divalproex Sodium 500 mg BID PO 04/25/25 10:00 04/30/25 09:36 500 MG Levothyroxine Sodium 50 mcg QAM@0600 PO 04/26/25 06:00 04/30/25 05:48 50 MCG Lisinopril 10 mg DAILY PO 04/25/25 10:00 04/30/25 09:37 10 MG Clonidine HCl 0.1 mg Q4HP PRN PO 04/25/25 07:45 04/27/25 11:01 0.1 MG Ceftriaxone Sodium 50 ml @ 100 mls/hr DAILY@09 IV 04/25/25 09:00 04/30/25 09:36 100 MLS/HR Diagnostic Test (Pha) 1 strip ACHS 04/25/25 11:30 04/29/25 22:00 1 STRIP Insulin Human Regular HS SC 04/25/25 22:00 04/28/25 22:17 3 UNITS Insulin Human Regular AC SC 04/25/25 11:30 04/30/25 06:37 189 UNITS Dextrose 50 ml UD PRN IV 04/25/25 07:45 Sodium Chloride 10 ml Q8HR IV 04/25/25 14:00 04/30/25 06:00 10 ML Ondansetron HCl 4 mg Q4HP PRN IV 04/25/25 07:45 Docusate Sodium 100 mg BIDPRN PRN PO 04/25/25 07:45 Duloxetine HCl 60 mg DAILY PO 04/25/25 10:00 04/30/25 09:36 60 MG Nitroglycerin 0.4 mg Q5MINP PRN SL 04/25/25 09:00 Oxycodone/ Acetaminophen 2 tab Q6HP PRN PO 04/27/25 11:45 04/30/25 09:37 2 TAB Cyclobenzaprine HCl 10 mg TID PO 04/28/25 14:00 04/30/25 05:48 10 MG Laboratory Results Laboratory Tests 04/28/25 05:51 Urinalysis Test 04/25/25 04:27 Urine Color Yellow (Yellow) Urine Clarity Clear (Clear) Urine pH 6.5 (5.0-9.0) Urine Specific [place] 1.025 (1.001-1.035) Urine Protein Trace (Negative) H Urine Ketones Negative (Negative) Urine Blood Negative /uL (Negative) Urine Nitrite Negative (Negative) Urine Bilirubin Negative (Negative) Urine Urobilinogen Normal mg/dL (Negative) Urine Leukocyte Esterase 2+ /uL (Negative) Urine RBC 2 /hpf (0 - 4) Urine Microscopic WBC 43 /HPF (0-5) H Urine Squamous Epithelial Cells Few /hpf (<5) Urine Bacteria None seen /hpf (None Seen) Urine Mucus Few (None Seen) Urine Glucose 4+ mg/dL (Normal) H Microbiology Microbiology Date/Time Source Procedure Growth Status 04/27/25 13:33 Blood Blood Culture - Preliminary NO GROWTH AFTER 48 HOURS OF INCUBATION. Resulted 04/26/25 04:45 Nose MRSA Screen - Final Complete 04/25/25 04:27 Voided Urine Urine Culture - Final Complete Labs and/or images reviewed: Labs reviewed by me, Image(s) reviewed by me Assessment/Plan Assessment/Plan Sepsis secondary to urinary tract infection: Blood cultures negative urine cultures mixed, continue Rocephin Acute pyelonephritis Severe back pain with radiculopathy: T-spine CT negative ordered CT LS spine shows disc narrowing at L4-5 previous signs of L-spine surgery, CT head negative CT abdomen pelvis without contrast negative Percocet 10 q.6 hours, baclofen 10 mg PO TID, consult for Dr. Maria M barrera, advised conservative management Uncontrolled diabetes: Insulin sliding scale Hypertension: Lisinopril Hypothyroidism: Synthroid Depression: Cymbalta Hypercholesterolemia: Lipitor History of seizure: Depakote Raj [phone] at bedside Physical therapy ordered PCP Dr Kumar Patient awaiting arrangement of home health by the certified social workers in health care Plan discussed with: Patient My Orders Orders - RIGO HANEY MD Procedure Category Date Status Time Insert Midline ORDERS 04/29/25 Transmitted 11:51 * [employer] CONS 04/29/25 Transmitted Consult Discharge DISCHARGE 04/29/25 Transmitted 13:47 Home Health Nursing REFER 04/29/25 Transmitted 13:48 * [employer] Operator CONS 04/29/25 Transmitted Consult Date of Service: Apr 30, 2025 Billing Provider: RIGO HANEY MD Common Visit Codes: [id number] INP/OBS CARE(HIGH) RIGO HANEY MD Apr 30, 2025 10:48
[2025-04-30 13:00] VITALS: BP 97/62; PULSE 79; RESP 16; TEMP 98.2; O2SAT 93
[2025-04-30 16:47] VITALS: BP 93/64; PULSE 78; RESP 15; TEMP 97.7; O2SAT 96
[2025-04-30 21:00] VITALS: BP 107/62; PULSE 85; RESP 16; TEMP 97.9; O2SAT 96
[2025-05-01] VITALS (7 sets, daily range): BP systolic 102–134; BP diastolic 61–83; PULSE 77–85; RESP 17–20; TEMP 97.8–98.8; O2SAT 96–98
--- NOTE | 2025-05-01 10:27 | DVHPN2 ---
Reviewed: Care Plan, H&P, Labs, Medications, Previous Orders, Radiology Changes from previous H/P or p: No Changes Eyes: No Pain, No Vision change, No Conjunctivae inflammation, No Eyelid inflammation, No Other, No Redness ENT: No Ear pain, No Ear discharge, No Nose pain, No Nose discharge, No Nose congestion, No Mouth pain, No Mouth swelling, No Throat pain, No Throat swelling, No Other Cardiovascular: No Chest Pain, No Palpitations, No Orthopnea, No Paroxysmal Noc. Dyspnea, No Edema, No Lt Headedness, No Other Respiratory: No Cough, No Dry, No Shortness of breath, No SOB with excertion, No Wheezing, No Hemoptysis, No Pleuritic Pain, No Sputum, No Other Gastrointestinal: No Nausea, No Vomiting, No Abdominal Pain, No Diarrhea, No Constipation, No Melena, No Hematochezia, No Other Genitourinary: No Dysuria, No Frequency, No Incontinence, No Hematuria, No Retention; Other (Flank pain) Musculoskeletal: No other, No neck pain, No shoulder pain, No arm pain; back pain; No hand pain, No leg pain, No foot pain Skin: No Rash, No Lesions, No Jaundice, No Bruising, No Other Objective Vitals Vital Signs Date Time Temp Pulse Resp B/P (MAP) Pulse Ox O2 Delivery O2 Flow Rate FiO2 05/01/25 09:00 98.0 81 17 102/61 (75) 98 98.0 04/30/25 20:00 Room Air* 0 21 Intake/Output Intake and Output 05/01/25 07:00 Intake Total 1150 ml Balance 1150 ml Intake Oral 1100 ml IV Total 50 ml # Voids 7 Medications Current Medications Medications Dose Ordered Sig/Fatimah Route Start Time Stop Time Status Last Admin Dose Admin Famotidine 20 mg DAILY PO 04/25/25 10:00 05/01/25 10:06 20 MG Divalproex Sodium 500 mg BID PO 04/25/25 10:00 05/01/25 10:06 500 MG Levothyroxine Sodium 50 mcg QAM@0600 PO 04/26/25 06:00 05/01/25 05:55 50 MCG Lisinopril 10 mg DAILY PO 04/25/25 10:00 04/30/25 09:37 10 MG Clonidine HCl 0.1 mg Q4HP PRN PO 04/25/25 07:45 04/27/25 11:01 0.1 MG Ceftriaxone Sodium 50 ml @ 100 mls/hr DAILY@09 IV 04/25/25 09:00 05/01/25 10:01 100 MLS/HR Diagnostic Test (Pha) 1 strip ACHS 04/25/25 11:30 05/01/25 06:01 1 STRIP Insulin Human Regular HS SC 04/25/25 22:00 04/30/25 21:45 4 UNITS Insulin Human Regular AC SC 04/25/25 11:30 05/01/25 06:08 3 UNITS Dextrose 50 ml UD PRN IV 04/25/25 07:45 Sodium Chloride 10 ml Q8HR IV 04/25/25 14:00 05/01/25 06:01 10 ML Ondansetron HCl 4 mg Q4HP PRN IV 04/25/25 07:45 Docusate Sodium 100 mg BIDPRN PRN PO 04/25/25 07:45 Duloxetine HCl 60 mg DAILY PO 04/25/25 10:00 05/01/25 10:05 60 MG Nitroglycerin 0.4 mg Q5MINP PRN SL 04/25/25 09:00 Oxycodone/ Acetaminophen 2 tab Q6HP PRN PO 04/27/25 11:45 04/30/25 17:34 2 TAB Cyclobenzaprine HCl 10 mg TID PO 04/28/25 14:00 05/01/25 05:55 10 MG Laboratory Results Laboratory Tests 04/28/25 05:51 Urinalysis Test 04/25/25 04:27 Urine Color Yellow (Yellow) Urine Clarity Clear (Clear) Urine pH 6.5 (5.0-9.0) Urine Specific [place] 1.025 (1.001-1.035) Urine Protein Trace (Negative) H Urine Ketones Negative (Negative) Urine Blood Negative /uL (Negative) Urine Nitrite Negative (Negative) Urine Bilirubin Negative (Negative) Urine Urobilinogen Normal mg/dL (Negative) Urine Leukocyte Esterase 2+ /uL (Negative) Urine RBC 2 /hpf (0 - 4) Urine Microscopic WBC 43 /HPF (0-5) H Urine Squamous Epithelial Cells Few /hpf (<5) Urine Bacteria None seen /hpf (None Seen) Urine Mucus Few (None Seen) Urine Glucose 4+ mg/dL (Normal) H Microbiology Microbiology Date/Time Source Procedure Growth Status 04/27/25 13:33 Blood Blood Culture - Preliminary NO GROWTH AFTER 72 HOURS OF INCUBATION. Resulted 04/26/25 04:45 Nose MRSA Screen - Final Complete 04/25/25 04:27 Voided Urine Urine Culture - Final Complete Labs and/or images reviewed: Labs reviewed by me, Image(s) reviewed by me Assessment/Plan Assessment/Plan Sepsis secondary to urinary tract infection: Blood cultures negative urine cultures mixed, continue Rocephin Acute pyelonephritis Severe back pain with radiculopathy: T-spine CT negative ordered CT LS spine shows disc narrowing at L4-5 previous signs of L-spine surgery, CT head negative CT abdomen pelvis without contrast negative Percocet 10 q.6 hours, baclofen 10 mg PO TID, consult for Dr. Maria M barrera, advised conservative management Uncontrolled diabetes: Insulin sliding scale Hypertension: Lisinopril Hypothyroidism: Synthroid Depression: Cymbalta Hypercholesterolemia: Lipitor History of seizure: Depakote Raj [phone] at bedside Orders Placed for midline Physical therapy ordered PCP Dr Kumar Patient awaiting arrangement of home health by the social organization professor RN Genna at bedside Plan discussed with: Patient My Orders Orders - RIGO HANEY MD Procedure Category Date Status Time Communication Order ORDERS 04/30/25 Transmitted 10:48 Date of Service: May 01, 2025 Billing Provider: RIGO HANEY MD Common Visit Codes: [id number] INP/OBS CARE(HIGH) RIGO HANEY MD May 01, 2025 10:27
== END 2025-05-01 19:48 | disposition home health service (06) | DRG 872 ==
LOC: ER 23:15 → OVERFLOW 04-25 08:51 → WEST WING 04-25 18:17
PROVIDERS: ADMIT Family Medicine; ATTEND Family Medicine
PROC: 05HA33Z Insertion of Infusion Device into Left Brachial Vein, Percutaneous Approach (ICD-10-PCS; principal; 2025-05-01)
PROC: B54NZZA Ultrasonography of Left Upper Extremity Veins, Guidance (ICD-10-PCS; 2025-05-01)
DX: A41.9 Sepsis, unspecified organism (principal); N10 Acute pyelonephritis; E03.9 Hypothyroidism, unspecified; E11.65 Type 2 diabetes mellitus with hyperglycemia; E78.00 Pure hypercholesterolemia, unspecified; I10 Essential (primary) hypertension; F32.A Depression, unspecified; M48.061 Spinal stenosis, lumbar region without neurogenic claudication; F17.210 Nicotine dependence, cigarettes, uncomplicated; M54.16 Radiculopathy, lumbar region; M96.1 Postlaminectomy syndrome, not elsewhere classified; Z88.5 Allergy status to narcotic agent; Z88.6 Allergy status to analgesic agent; Z79.899 Other long term (current) drug therapy; Z90.49 Acquired absence of other specified parts of digestive tract
CPT/HCPCS: 36415; 70450; 72070; 72131; 72148; 74176; 80053; 80164; 81001; 82962; 85025; 87040; 87081; 87086; 96361; 96365; 96372; 96375; 96376; 97110; 97116; 97163; 97530; G0378; J1100; J1815; J1885; J2405